=== PATIENT | female | born 1995 | race Caucasian/White ===

== ENCOUNTER 2021-06-17 09:57 | Emergency (ER) | payer OTHER ==
[2021-06-17 11:17] LABS: Urine Blood Trace-intact (Negative); Urine Glucose Negative (Negative); Urine Protein Negative (Negative); Urine Specific Gravity >=1.030 (1.005-1.030); Urine pH 5.5 (5.0-7.0)
[2021-06-17 11:49] LABS: Urine Bacteria >50 /HPF (<20)
[2021-06-17] MEDS ORDERED: ONDANSETRON 4 MG/2 ML VIAL ONE (12:05)
[2021-06-17 12:11] LABS: Absolute Lymphocytes (CBC) 1.8 K/uL (0.7-4.9); Hematocrit 39.2 % (36.0-45.0); MPV 7.5 fL (7.6-11.3); RBC Red Blood Cell Count 4.52 M/uL (3.86-4.86)
[2021-06-17 12:30] LABS: Albumin 3.6 g/dL (3.4-5.0); Bilirubin Total 0.4 mg/dL (0.2-1.0); Potassium 3.9 mmol/L (3.5-5.1); Protein, Total 7.6 g/dL (6.4-8.2)
--- NOTE | 2021-06-17 12:45 | RAD REPORT ---
EXAM DESCRIPTION: US - Transvaginal Study Probe - 06/17/2021 12:28 pm CLINICAL HISTORY: ABD PAIN Pelvic pain. COMPARISON: No comparisons FINDINGS: The uterus is normal in size, shape and echotexture. The uterus measures 7.2 x 4.3 x 3.1 c m. The endometrial stripe measures 7 mm, normal. Both ovaries are normal in size, shape and echotexture. The right ovary measures 3.0 x 2.5 x 2.3 cm. The left ovary measures 2.7 x 1.8 x 1.8 cm. No ovarian or parovarian lesions. No adnexal masses. Normal Doppler blood flow was demonstrated to both ovaries. No significant pelvic ascites. IMPRESSION: Unremarkable study.
--- NOTE | 2021-06-17 13:34 | RAD REPORT ---
EXAM DESCRIPTION: CTAbdomen Pelvis W Contrast - 06/17/2021 1:08 pm CLINICAL HISTORY: Abdominal pain. ABD PAIN COMPARISON: No comparisons TECHNIQUE: Biphasic CT imaging of the abdomen and pelvis was performed with 100 ml non-ionic IV cont rast. All CT scans are performed using dose optimization technique as appropriate and may include automated exposure control or mA/KV adjustment according to patient size. FINDINGS: The lung bases are clear. The liver, spleen, pancreas, adrenal glands and kidneys are within normal limits. No bowel obstruction, free air, free fluid or abscess. Appendectomy. No evidence of significant lym phadenopathy. No suspicious bony findings. IMPRESSION: No acute intra-abdominal or pelvic finding.
--- NOTE | 2021-06-17 13:42 | ER ---
Nurse's Notes [facility] Name: Sherri Perez Age: 25 yrs Sex: Female : 1995 Arrival Date: 06/17/2021 Time: 10:01 Bed 25 Private MD: Diagnosis: Abdominal pain, Generalized Presentation: 06/17 10:19 Chief complaint: Patient states: she has been having abdominal pain for approx 2 weeks ap3 now that has increased in intensity. Patient reports the pain is increased when she bends over, and is bearable if she lays down and is still. Patient also reports having lost most of her appetite and feels full after just a few bites. Patient reports being evaluated by her PCP and her [employer], which she was dx with yeast infection and chlamydia. Patient states she still has her Gallbladder, does not have her appendix. Coronavirus screen: At this time, the client does not indicate any symptoms associated with coronavirus-19. Ebola Screen: No symptoms or risks identified at this time. Initial Sepsis Screen: Does the patient meet any 2 criteria? No. Patient's initial sepsis screen is negative. Does the patient have a suspected source of infection? No. Patient's initial sepsis screen is negative. Risk Assessment: Do you want to hurt yourself or someone else? Patient reports no desire to harm self or others. Onset of symptoms was June 03, 2021. 10:19 Method Of Arrival: Ambulatory ap3 10:19 Acuity: CHRIS 3 ap3 Triage Assessment: 10:24 General: Appears in no apparent distress. Behavior is calm, cooperative, appropriate ap3 for age. Pain: Complains of pain in abdomen Pain currently is 9 out of 10 on a pain scale. at worst was 10 out of 10 on a pain scale. Pain began gradually, over a few weeks Alleviated by rest, Aggravated by bending over. Neuro: Level of Consciousness is awake, alert, obeys commands, Oriented to person, place, time, situation, Appropriate for age. Cardiovascular: Patient's skin is warm and dry. Respiratory: Airway is patent Respiratory effort is even, unlabored, Respiratory pattern is regular, symmetrical. GI: Reports lower abdominal pain, upper abdominal pain, anorexia, intolerance of food, nausea. FUELER: 10:25 LMP 06/03/2021 ap3 Historical: - Allergies: 10:22 Morphine; ap3 - PMHx: 10:22 ovarian cyst; Anxiety; ap3 - Immunization history:: Client reports receiving the 2nd dose of the Covid vaccine. - Social history:: Smoking status: Patient denies any tobacco usage or history of. Patient uses alcohol, occasionally. Screenin:25 Abuse screen: Denies threats or abuse. Nutritional screening: Has had N/V for 3 or more ap3 days. Tuberculosis screening: No symptoms or risk factors identified. Fall Risk None identified. Assessment: 11:55 General: Appears in no apparent distress. comfortable, Behavior is calm, cooperative, jd3 appropriate for age. Pain: Complains of pain in right lower quadrant and left lower quadrant Quality of pain is described as shooting, tender. Neuro: Level of Consciousness is awake, alert, obeys commands, Oriented to person, place, time, situation. Cardiovascular: Capillary refill < 3 seconds Patient's skin is warm and dry. Respiratory: Airway is patent Respiratory effort is even, unlabored, Respiratory pattern is regular, symmetrical, Denies cough, shortness of breath. GI: Abdomen is round non-distended, Abd is soft and non tender X 4 quads. Reports lower abdominal pain, cramping, nausea, vomiting. : No signs and/or symptoms were reported regarding the genitourinary system. EENT: No signs and/or symptoms were reported regarding the EENT system. Derm: Skin is intact, Skin is dry, Skin is normal, Skin temperature is warm. Musculoskeletal: Circulation, motion, and sensation intact. Range of motion: intact in all extremities. 13:17 Reassessment: Patient appears in no apparent distress at this time. Patient and/or jd3 family updated on plan of care and expected duration. Pain level reassessed. Patient is alert, oriented x 3, equal unlabored respirations, skin warm/dry/pink. reports nausea is feeling better. 14:04 Reassessment: Patient appears in no apparent distress at this time. Patient and/or jd3 family updated on plan of care and expected duration. Pain level reassessed. Patient is alert, oriented x 3, equal unlabored respirations, skin warm/dry/pink. Vital Signs: 10:19 Pulse 76; Resp 16; Temp 98.2; Pulse Ox 99% ; Weight 99.79 kg; Height 5 ft. 6 in. ap3 (167.64 cm); Pain 9/10; 13:17 BP 130 / 53; Pulse 87; Resp 16 S; Pulse Ox 99% on R/A; jd3 10:19 Body Mass Index 35.51 (99.79 kg, 167.64 cm) ap3 ED Course: 10:01 Patient arrived in ED. ds1 10:22 Triage completed. ap3 10:25 Arm band placed on right wrist. ap3 11:12 Anival Drew RN is Primary Nurse. jd3 11:15 Paresh Henry PA is PHCP. jr8 11:15 Samuel Vanegas MD is Attending Physician. jr8 11:31 Urine Microscopic Only Sent. jd3 11:55 Inserted saline lock: 22 gauge in left upper arm, using aseptic technique. Blood jd3 collected. 12:08 Patient has correct armband on for positive identification. Bed in low position. Call jd3 light in reach. Side rails up X 1. Adult w/ patient. Pulse ox on. NIBP on. 12:28 US Transvaginal Study (Probe) In Process Unspecified. EDMS 13:09 CT Abd/Pelvis - IV Contrast Only In Process Unspecified. EDMS 14:04 No provider procedures requiring assistance completed. IV discontinued, intact, jd3 bleeding controlled, No redness/swelling at site. Pressure dressing applied. Administered Medications: 12:06 Drug: Zofran (Ondansetron) 4 mg Route: IVP; Site: left upper arm; jd3 13:00 Follow up: Response: No adverse reaction jd3 13:54 Drug: Ketorolac 30 mg Route: IVP; Site: left upper arm; jd3 14:04 Follow up: Response: No adverse reaction jd3 Outcome: 13:41 Discharge ordered by . jr8 14:04 Discharged to home ambulatory. jd3 14:04 Condition: stable 14:04 Discharge instructions given to patient, Instructed on discharge instructions, follow up and referral plans. Demonstrated understanding of instructions, follow-up care. 14:04 Patient left the ED. jd3 Signatures: Dispatcher [employer] EDLA Jeanne Jacques ds1 Paresh Henry PA PA jr8 Anival Drew RN RN jd3 Emma Alberto RN RN ap3
--- NOTE | 2021-06-17 13:42 | EDPHYS ---
Physician Documentation [facility] Name: Sherri Perez Age: 25 yrs Sex: Female : 1995 Arrival Date: 06/17/2021 Time: 10:01 Bed 25 Private MD: ED Physician Samuel Vanegas HPI: 06/17 12:17 This 25 yrs old Female presents to ER via Ambulatory with complaints of Abdominal Pain. jr8 12:17 Associated signs and symptoms: Pertinent positives: nausea and vomiting. jr8 12:17 Onset: The symptoms/episode began/occurred 2 week(s) ago. 25-year-old female presents jr8 to the ER complaining of lower abdominal pain, and nausea for 2 weeks. She was seen by both her primary care and supervisor plate forming a few days ago. She was diagnosed with both chlamydia and a yeast infection. She is taking azithromycin and clotrimazole. She states that her pain became sharp last night, and was directed by her supervisor plate forming to go to the ER. She has a history of ovarian cyst and reports that it feels very similar to the last time she had a cyst.. SIGNAL PERSON: 10:25 LMP 06/03/2021 ap3 Historical: - Allergies: 10:22 Morphine; ap3 - PMHx: 10:22 ovarian cyst; Anxiety; ap3 - Immunization history:: Client reports receiving the 2nd dose of the Covid vaccine. - Social history:: Smoking status: Patient denies any tobacco usage or history of. Patient uses alcohol, occasionally. ROS: 12:17 Constitutional: Negative for fever, chills, and weight loss, Cardiovascular: Negative jr8 for chest pain, palpitations, and edema, Respiratory: Negative for shortness of breath, cough, wheezing, and pleuritic chest pain, Skin: Negative for injury, rash, and discoloration, Neuro: Negative for headache, weakness, numbness, tingling, and seizure. 12:17 Abdomen/GI: Positive for abdominal pain, nausea. 12:17 All other systems are negative. Exam: 12:17 Constitutional: This is a well developed, well nourished patient who is awake, alert, jr8 and in no acute distress. Cardiovascular: Regular rate and rhythm with a normal S1 and S2. No gallops, murmurs, or rubs. Normal PMI, no JVD. No pulse deficits. Respiratory: Lungs have equal breath sounds bilaterally, clear to auscultation and percussion. No rales, rhonchi or wheezes noted. No increased work of breathing, no retractions or nasal flaring. 12:17 Abdomen/GI: Inspection: abdomen appears normal, Bowel sounds: normal, Palpation: soft, moderate abdominal tenderness, in the suprapubic area, right lower quadrant and left lower quadrant. Vital Signs: 10:19 Pulse 76; Resp 16; Temp 98.2; Pulse Ox 99% ; Weight 99.79 kg; Height 5 ft. 6 in. ap3 (167.64 cm); Pain 9/10; 13:17 BP 130 / 53; Pulse 87; Resp 16 S; Pulse Ox 99% on R/A; jd3 10:19 Body Mass Index 35.51 (99.79 kg, 167.64 cm) ap3 MDM: 11:15 Patient medically screened. jr8 13:39 Data reviewed: vital signs, nurses notes, lab test result(s), radiologic studies, CT jr8 scan, ultrasound. Data interpreted: Pulse oximetry: on room air is 99 %. Interpretation: normal. Counseling: I had a detailed discussion with the patient and/or guardian regarding: the historical points, exam findings, and any diagnostic results supporting the discharge/admit diagnosis, lab results, radiology results, the need for outpatient follow up, a family practitioner, to return to the emergency department if symptoms worsen or persist or if there are any questions or concerns that arise at home. Special discussion: Based on the patient's Hx, exam, and Dx evaluation, there is no indication for emergent surgery or inpatient Tx. It is understood by the patient/guardian that if the Sx's persist or worsen they need to return immediately for re-evaluation. 06/17 11:17 Order name: Urine Dipstick-Ancillary; Complete Time: 11:24 EDMS 06/17 11:26 Order name: Urine Microscopic Only; Complete Time: 12:04 jr8 06/17 11:40 Order name: CBC with Diff; Complete Time: 12:16 sp3 06/17 11:40 Order name: CMP; Complete Time: 12:32 sp3 06/17 11:40 Order name: US Transvaginal Study (Probe); Complete Time: 12:46 jr8 06/17 12:34 Order name: CT Abd/Pelvis - IV Contrast Only; Complete Time: 13:39 jr8 06/17 11:26 Order name: Urine Test (obtain specimen); Complete Time: 11:31 jr8 06/17 11:40 Order name: IV Saline Lock; Complete Time: 11:58 sp3 06/17 11:40 Order name: Labs collected and sent; Complete Time: 11:58 sp3 Administered Medications: 12:06 Drug: Zofran (Ondansetron) 4 mg Route: IVP; Site: left upper arm; jd3 13:00 Follow up: Response: No adverse reaction jd3 13:54 Drug: Ketorolac 30 mg Route: IVP; Site: left upper arm; jd3 14:04 Follow up: Response: No adverse reaction jd3 Disposition Summary: 06/17/21 13:41 Discharge Ordered Location: Home jr8 Problem: new jr8 Symptoms: have improved jr8 Condition: Stable jr8 Diagnosis - Abdominal pain, Generalized jr8 Followup: jr8 - With: Private Physician - When: 2 - 3 days - Reason: Recheck today's complaints, Continuance of care, Re-evaluation by your physician Discharge Instructions: - Discharge Summary Sheet jr8 - Abdominal Pain, Adult jr8 Forms: - Medication Reconciliation Form jr8 - Thank You Letter jr8 - Antibiotic Education jr8 - Prescription Opioid Use jr8 - Work release form jd3 Signatures: Dispatcher [employer] EDParesh Byrd PA PA jr8 Anival Drew RN RN jd3 Emma Alberto RN RN ap3 Samuel Vanegas MD MD sp3
[2021-06-17] MEDS ORDERED: KETOROLAC 30 MG/ML INJ ONE (13:53)
[2021-06-17 18:50] VITALS: TEMP 98.2; O2SAT 99
[2021-06-17 18:52] VITALS: BP 130/53
== END 2021-06-17 14:04 | disposition home or self-care (01) ==
LOC: ER 09:57
DX: R10.84 Generalized abdominal pain (principal); R11.0 Nausea; Z88.5 Allergy status to narcotic agent
CPT/HCPCS: 85025; 36415; 80053; 74177; 76830; Q9967; J2405; 81003; 81015; 96374; 96375; 99284

== ENCOUNTER 2023-02-09 16:36 | Emergency (ER) | payer SELFPAY ==
--- OUTSIDE RECORDS SUMMARY | 2023-02-09 16:39 | XMS REPORT | Continuity of Care Document ---
:1995 Author Organization [facility] t Address [address] [place] [address] [address] [place] [address] Care Team Providers Name Role Phone Deepak Lizarraga Primary Care Physician Laurie Rivas MD Attending Clinician Nina Maddox Attending Clinician NINA HAGAN Attending Clinician Unavailable Adela Olmstead Attending Clinician [phone] ADELA SAM Attending Clinician Unavailable Doctor Unassigned, Mena Attending Clinician Unavailable Yenni Capps Attending Clinician YENNI RIVAS Attending Clinician Unavailable ANNA STOCK Attending Clinician Unavailable HANY POWERS Attending Clinician Unavailable UNKNOWN, ATTENDING Attending Clinician Unavailable SHEEBA SMITH Attending Clinician Unavailable Payers Payer Name Policy Type Policy Number Effective Date Expiration Date Miller franks [id number] 2020 00:00:00 Problems Condition Condition Condition Status Onset Resolution Last Treating Co mments Source Name Details Category Date Date Treatment Clinician Date Other Other Disease Active Univers general general 8-26 [place] of counseling [place] and advice and advice 00 Nv dical for for Branch contracept contracept erna erna management management History of History of Disease Active U nivers anxiety anxiety 5-10 ity of 00:00: [place] 00 Medical Branch IUD IUD Disease Active Univers (intrauter (intrauter 5-07 it y of ine ine 00:00: [place] device) in device) in [address] Branch Class 2 Class 2 Disease Active Univers obesity obesity 5-07 ity of due to due to 00:00: [place] excess excess 00 Medical calories calories Branch with body with body mass index mass index (BMI) of (BMI) of 36.0 to 36.0 to 36.9 in 36.9 in adult, adult, unspecifie unspecifie d whether d whether serious serious comorbidit comorbidit y present y present BMI BMI Disease Active Univers 36.0-36.9, 36.0-36.9, 5-07 it y of adult adult 00:00: [place] 00 Medical Branch Class 2 Class 2 Disease Active Univers obesity obesity 5-07 ity of due to due to 00:00: [place] excess excess 00 Medical calories calories Branch with body with body mass index mass index (BMI) of (BMI) of 36.0 to 36.0 to 36.9 in 36.9 in adult, adult, unspecifie unspecifie d whether d whether serious serious comorbidit comorbidit y present y present Pain Pain Disease Active 2016-03 Univers pelvic pelvic 0-16 ity of 00:00: [place] 00 Medical Branch Screening Screening Disease Active 2016-03 Uni vers examinatio examinatio 0-13 it y of n for STD n for STD [place] (sexually (sexually 00 Medi mundo transmitte transmitte Br anch d disease) d disease) Allergies, Adverse Reactions, Alerts Allergy Allergy Status Severity Reaction(s) Onset Inactive Treating Comm ents Source Name Type Date Date Clinician NAPROXEN DRUG Active High Other-Cmnt Univ ers SODIUM INGREDI 06-10 ity of 00:00: [place] 00 Medical Branch MORPHINE DRUG Active Low Unknown-Cmnt Un franklin INGREDI 06-10 ity of 00:00: [place] 00 Medical Branch Naproxen Propensi Active Other - See Throat U nivers Sodium ty to comments 06-10 closes ity of adverse 00:00: when [place] reaction 00 takes Medical s to Aleve. Branch drug Morphine Propensi Active Unknown - When Uni vers ty to See comments 3- morphine it y of adverse 00:00: given [place] reaction 00 through Medical s to IV makes Branch drug patient fell like she is on fire. NO KNOWN Drug Active Univers ALLERGIE Class ity of S [facility] Social History Social Habit Start Date Stop Date Quantity Comments Source Gender identity Universit y [facility] Sexual orientation Univer sity [facility] Exposure to 2022-05-31 2022-06-10 Not sure [facility] SARS-CoV-2 (event) 00:00:00 15:12:00 [facility] History of Social 2022-06-10 2022-06-10 Univers ity of function 00:00:00 00:00:00 [facility] Alcohol intake 2017-10-14 2017-10-14 Current University of 00:00:00 00:00:00 non-drinker of [facility] alcohol [place] (finding) Tobacco use and 2016-12-25 2016-12-25 Smokeless Universit y of exposure 00:00:00 00:00:00 tobacco non-user [facility] Sex Assigned At [birth year] Universit y of 00:00:00 00:00:00 [facility] Smoking Status Start Date Stop Date Source Never smoked tobacco [facility] Medications Ordered Filled Start Stop Current Ordering Indication Dosage Frequency Signature Comments Components Source Medication Medication Date Date Medication? Clinician (SIG) Name Name norgestimat Yes [id number] 1{tbl} Take 1 Univers e-ethinyl 4-14 tablet by ity o f estradioL 00:00[place] 0.[place].215[place] 00 the Medical 0.25 mg-25 morning. Branc h mcg tablet norgestimat Yes [id number] 1{tbl} Take 1 Univers e-ethinyl 4-14 tablet by ity o f estradioL 00:00: [place] 0.18[place]0.215/ 00 the Medical 0.25 mg-25 morning. Branc h mcg tablet norgestimat Yes [id number] 1{tbl} Take 1 Univers e-ethinyl 4-14 tablet by ity o f estradioL 00:00[place] 0.[place]0.[place]/ 00 the Medical 0.25 mg-25 morning. Branc h mcg tablet SERTraline 2023-0 Yes 100mg Take 1 Univ ers 100 mg 3-29 tablet by ity of tablet 15:25: mouth in [place] [address] the Medical morning. Branch buPROPion 2023-0 Yes 150mg Take 1 Unive rs SR 3-29 tablet by ity of (WELLBUTRIN 15:25: [place] SR[place] 150 mg 49 the Medical SR tablet morning Branch and 1 tablet in the evening. hydrOXYzine 2023-0 Yes 50mg Take 1 Univ ers 50 mg 3-29 tablet by ity of tablet 15:25: mouth in [place] [address] the Medical morning. Branch Takes at night to help sleep. Gets from Dr. Cyn Sifuentes. SERTraline 2023-0 Yes 100mg Take 1 Univ ers 100 mg 3-29 tablet by ity of tablet 15:25: mouth in [place] [address] the Medical morning. Branch buPROPion 2023-0 Yes 150mg Take 1 Unive rs SR 3-29 tablet by ity of (WELLBUTRIN 15:25: [place] SR[place] 150 mg 49 the Medical SR tablet morning Branch and 1 tablet in the evening. hydrOXYzine 2023-0 Yes 50mg Take 1 Univ ers 50 mg 3-29 tablet by ity of tablet 15:25: mouth in [place] [address] the Medical morning. Branch Takes at night to help sleep. Gets from Dr. Cyn Sifuentes. SERTraline 2023-0 Yes 100mg Take 1 Univ ers 100 mg 3-29 tablet by ity of tablet 15:25: mouth in [place] [address] the Medical morning. Branch buPROPion 2023-0 Yes 150mg Take 1 Unive rs SR 3-29 tablet by ity of (WELLBUTRIN 15:25: [place] SR[place] 150 mg 49 the Medical SR tablet morning Branch and 1 tablet in the evening. hydrOXYzine 2023-0 Yes 50mg Take 1 Univ ers 50 mg 3-29 tablet by ity of tablet 15:25: mouth in [place] [address] the Medical morning. Branch Takes at night to help sleep. Gets from Dr. Cyn Sifuentes. SERTraline 2023-0 Yes 100mg Take 1 Univ ers 100 mg 3-29 tablet by ity of tablet 15:25: mouth in [place] [address] the Medical morning. Branch buPROPion 2023-0 Yes 150mg Take 1 Unive rs SR 3-29 tablet by ity of (WELLBUTRIN 15:25: [place] SR[place] 150 mg 49 the Medical SR tablet morning Branch and 1 tablet in the evening. hydrOXYzine 2023-0 Yes 50mg Take 1 Univ ers 50 mg 3-29 tablet by ity of tablet 15:25: mouth in [place] [address] the Medical morning. Branch Takes at night to help sleep. Gets from Dr. Cyn Sifuentes. SERTraline 2023-0 Yes 100mg Take 1 Univ ers 100 mg 3-29 tablet by ity of tablet 15:25: mouth in [place] [address] the Medical morning. Branch buPROPion 2023-0 Yes 150mg Take 1 Unive rs SR 3-29 tablet by ity of (WELLBUTRIN 15:25: [place] SR[place] 150 mg 49 the Medical SR tablet morning Branch and 1 tablet in the evening. hydrOXYzine 2023-0 Yes 50mg Take 1 Univ ers 50 mg 3-29 tablet by ity of tablet 15:25: mouth in [place] [address] the Medical morning. Branch Takes at night to help sleep. Gets from Dr. Cyn Sifuentes. SERTraline 2023-0 Yes 100mg Take 1 Univ ers 100 mg 3-29 tablet by ity of tablet 15:25: mouth in [place] [address] the Medical morning. Branch buPROPion 2023-0 Yes 150mg Take 1 Unive rs SR 3-29 tablet by ity of (WELLBUTRIN 15:25: [place] SR[place] 150 mg 49 the Medical SR tablet morning Branch and 1 tablet in the evening. hydrOXYzine 2023-0 Yes 50mg Take 1 Univ ers 50 mg 3-29 tablet by ity of tablet 15:25: mouth in [place] [address] the Medical morning. Branch Takes at night to help sleep. Gets from Dr. Cyn Sifuentes. norgestimat 2023-0 Yes [id number] 1{tbl} Take 1 Univers e-ethinyl 3-29 tablet by ity o f estradioL 00:00: mouth in [facility] 0.18/0.215/ 00 the Medical 0.25 mg-25 morning. Branc h mcg tablet norgestimat 2023-0 Yes [id number] 1{tbl} Take 1 Univers e-ethinyl 3-29 tablet by ity o f estradioL [place]: [place] 0[place]18[place]0.215/ 00 the Medical 0.25 mg-25 morning. Branc h mcg tablet norgestimat Yes [id number] 1{tbl} Take 1 Univers e-ethinyl 3-29 tablet by ity o f estradioL 00:00: [place] 0.18/0.215/ 00 the Medical 0.25 mg-25 morning. Branc h mcg tablet norgestimat 2022- No [id number] 1{tbl} Take 1 Univers e-ethinyl 3-29 04-14 tablet by ity of estradioL 00:00: 00:00 mouth in [place] 0.18/0.215/ 00 :00 the Medical 0.25 mg-25 morning. Branc h mcg tablet No known No No known Unive rs medications 11-07 medication it y of 14:35: s [address] terconazole 2021- No [id number] 1{appli Insert 1 Univers 0.8 % 4-11-07 cator} Applicator ity o f vaginal 00:00: 00:00 into [place] cream 00 :00 vagina at Medical bedtime. [place] terconazole 2021- No [id number] 1{appli Insert 1 Univers 0.8 % -11-07 cator} Applicator ity o f vaginal 00:00: 00:00 into [place] cream 00 :00 vagina at Medical bedtime. [place] terconazole 2021- No [id number] 1{appli Insert 1 Univers 0.8 % 08-07 cator} Applicator ity o f vaginal 00:00: 00:00 into [place] cream 00 :00 vagina at Medical bedtime. [place] terconazole 2021- No [id number] 1{appli Insert 1 Univers 0.8 % 08-07- cator} Applicator ity o f vaginal 00:00: 00:00 into [place] cream 00 :00 vagina at Medical bedtime. [place] norgestimat 2021- No [id number] 1{tbl} Take 1 Univers e-ethinyl 5-11 -26 tablet by ity of estradioL 00:00: 00:00 mouth [place] 0.18/0.215/ 00 :00 daily. Medica l 0.25 mg-25 Branch mcg tablet norgestimat 2021- No [id number] 1{tbl} Take 1 Univers e-ethinyl 5-11 08-26 tablet by ity of estradioL 00:00: 00:00 mouth [place] 0.18/0.215/ 00 :00 daily. Medica l 0.25 mg-25 Branch mcg tablet norgestimat 2016-03- No [id number] 1{tbl} Take 1 Univers e-ethinyl 0-16 -12 tablet by ity of estradiol 00:00: 00:00 mouth [place] 0.18/0.215/ 00 :00 daily. Medica l 0.25 mg-35 Branch mcg (28) tablet Immunizations Ordered Filled Date Status Comments Source Immunization Name Immunization Name SARS-COV-2 COVID-19 2020-04-08 Completed Unive rsity of PFIZER VACCINE 00:00:00 [facility] SARS-COV-2 COVID-19 2020-04-08 Completed Unive rsity of PFIZER VACCINE 00:00:00 [facility] SARS-COV-2 COVID-19 2020-04-08 Completed Unive rsity of PFIZER VACCINE 00:00:00 [facility] SARS-COV-2 COVID-19 2020-04-08 Completed Unive rsity of PFIZER VACCINE 00:00:00 [facility] SARS-COV-2 COVID-19 2020-04-08 Completed Unive rsity of PFIZER VACCINE 00:00:00 [facility] SARS-COV-2 COVID-19 2020-04-08 Completed Unive rsity of PFIZER VACCINE 00:00:00 [facility] SARS-COV-2 COVID-19 2020-04-08 Completed Unive rsity of PFIZER VACCINE 00:00:00 [facility] SARS-COV-2 COVID-19 2020-04-08 Completed Unive rsity of PFIZER VACCINE 00:00:00 [facility] Pfizer COVID-19 Pfizer COVID-19 2020-04-08 Completed Vaccine Vaccine 00:00:00 SARS-COV-2 COVID-19 2020-03-16 Completed Unive rsity of PFIZER VACCINE 00:00:00 [facility] SARS-COV-2 COVID-19 2020-03-16 Completed Unive rsity of PFIZER VACCINE 00:00:00 [facility] SARS-COV-2 COVID-19 2020-03-16 Completed Unive rsity of PFIZER VACCINE 00:00:00 [facility] SARS-COV-2 COVID-19 2020-03-16 Completed Unive rsity of PFIZER VACCINE 00:00:00 [facility] SARS-COV-2 COVID-19 2020-03-16 Completed Unive rsity of PFIZER VACCINE 00:00:00 [facility] SARS-COV-2 COVID-19 2020-03-16 Completed Unive rsity of PFIZER VACCINE 00:00:00 [facility] SARS-COV-2 COVID-19 2020-03-16 Completed Unive rsity of PFIZER VACCINE 00:00:00 [facility] SARS-COV-2 COVID-19 2020-03-16 Completed Unive rsity of PFIZER VACCINE 00:00:00 [facility] Pfizer COVID-19 Pfizer COVID-19 2020-03-16 Completed Vaccine Vaccine 00:00:00 HPV9 2016-12-25 Completed University of 00:00:00 [facility] HPV9 2016-12-25 Completed University of 00:00:00 [facility] HPV9 2016-12-25 Completed University of 00:00:00 [facility] HPV9 2016-12-25 Completed University of 00:00:00 [facility] HPV9 2016-12-25 Completed University of 00:00:00 [facility] HPV9 2016-12-25 Completed University of 00:00:00 [facility] HPV9 2016-12-25 Completed University of 00:00:00 [facility] HPV9 2016-12-25 Completed University of 00:00:00 [facility] HPV 2013-03-15 Completed University of 00:00:00 [facility] HPV 2013-03-15 Completed University of 00:00:00 [facility] HPV 2013-03-15 Completed University of 00:00:00 [facility] HPV 2013-03-15 Completed University of 00:00:00 [facility] HPV 2013-03-15 Completed University of 00:00:[address] [facility] Branch HPV 2013-03-15 Completed University of 00:00:00 [facility] HPV 2013-03-15 Completed University of 00:00:00 [facility] HPV 2013-03-15 Completed University of 00:00:00 [facility] TDAP 2011-03-15 Completed University of 00:00:00 [facility] TDAP 2011-03-15 Completed University of 00:00:00 [facility] TDAP 2011-03-15 Completed University of 00:00:00 [facility] TDAP 2011-03-15 Completed University of 00:00:00 [facility] TDAP 2011-03-15 Completed University of 00:00: [facility] TDAP 2011-03-15 Completed University of 00:00: [facility] TDAP 2011-03-15 Completed University of 00:00:00 [facility] TDAP 2011-03-15 Completed University of 00:00:00 [facility] TDAP Unknown Completed [facility] HPV Unknown Completed [facility] HPV9 Unknown Completed [facility] SARS-COV-2 COVID-19 Unknown Completed Unive rsity of PFIZER VACCINE [facility] SARS-COV-2 COVID-19 Unknown Completed Unive rsity of PFIZER VACCINE [facility] TDAP Unknown Completed [facility] HPV Unknown Completed [facility] HPV9 Unknown Completed [facility] SARS-COV-2 COVID-19 Unknown Completed Unive rsity of PFIZER VACCINE [facility] SARS-COV-2 COVID-19 Unknown Completed Unive rsity of PFIZER VACCINE [facility] TDAP Unknown Completed [facility] HPV Unknown Completed [facility] HPV9 Unknown Completed [facility] SARS-COV-2 COVID-19 Unknown Completed Unive rsity of PFIZER VACCINE [facility] SARS-COV-2 COVID-19 Unknown Completed Unive rsity of PFIZER VACCINE [facility] TDAP Unknown Completed [facility] HPV Unknown Completed [facility] HPV9 Unknown Completed [facility] SARS-COV-2 COVID-19 Unknown Completed Unive rsity of PFIZER VACCINE [facility] SARS-COV-2 COVID-19 Unknown Completed Unive rsity of PFIZER VACCINE [facility] TDAP Unknown Completed [facility] HPV Unknown Completed [facility] HPV9 Unknown Completed [facility] Vital Signs Vital Name Observation Time Observation Value Comments Source Systolic blood 2022-06-10 20:16:00 123 mm[Hg] Univer sity of pressure [place] [facility] Diastolic blood 2022-06-10 20:16:00 76 mm[Hg] Unive rsity of pressure [place] [facility] Heart rate 2022-06-10 20:16:00 88 /min Universi ty of [place] [facility] [place] Body temperature 2022-06-10 20:16:00 36.44 Izabel Univ ersity of [place] [facility] Respiratory rate 2022-06-10 20:16:00 17 /min Univ ersity of [place] [facility] Body height 2022-06-10 20:16:00 170.2 cm Universi ty of [place] [facility] Body weight 2022-06-10 20:16:00 112.095 kg Universi ty of [place] [facility] BMI 2022-06-10 20:16:00 38.71 kg/m2 Universi ty of [facility] Systolic blood 2021-11-07 19:30:00 128 mm[Hg] Univer sity of pressure [place] [facility] Diastolic blood 2021-11-07 19:30:00 82 mm[Hg] Unive rsity of pressure [place] [facility] Heart rate 2021-11-07 19:29:00 73 /min Universi ty of [place] [facility] Body temperature 2021-11-07 19:29:00 36.89 Izabel Univ ersity of [facility] Branch Respiratory rate 2021-11-07 19:29:00 18 /min Univ ersity of [place] [facility] Body height 2021-11-07 19:29:00 170.2 cm Universi ty of [place] [facility] Body weight 2021-11-07 19:29:00 104.101 kg Universi ty of [place] [facility] BMI 2021-11-07 19:29:00 35.94 kg/m2 Universi ty of [place] [facility] Procedures Procedure Date / Time Performed Performing Clinician Sourc e POCT TEST 2022-06-10 21:12:00 Nina Hagan [facility] POCT URINALYSIS W/O 2022-06-10 20:38:00 Nina Hagan [facility] Encounters Start End Encounter Admission Attending Care Care Encounter Source Date/Time Date/Time Type Type Clinicians Facility Department ID 2022-09-24 2022-09-24 Outpatient R [facility] [id number] Univers 08:30:00 08:30:00 ity of [facility] 2022-09-19 2022-09-19 Refaster Rivas IABARBI [id number] Univers 00:00:00 00:00:00 Laurie Dawson ELECTRICIAN'S HELPER [id number] ity of REGIONAL [id number] [place] MATERNAL [id number] [facility] CHILD [address] [place] [address] 2022-06-25 2022-06-25 Telephone Danya [facility] [id number] Univers 00:00:00 00:00:00 Nina Jasmine ELECTRICIAN'S HELPER [id number] it y of REGIONAL [id number] Primitivo as MATERNAL [id number] [facility] & [address] 2022-06-25 2022-06-25 Telephone Danya [facility] [id number] Univers 00:00:00 00:00:00 Nina Jasmine ELECTRICIAN'S HELPER [id number] it y of REGIONAL [id number] [place]it[place] as MATERNAL [id number] [facility] CHILD [address] [place] [address] 2022-06-18 2022-06-18 Telephone Danya I[facility] [id number] Univers 00:00:00 00:00:00 Nina Jasmine ELECTRICIAN'S HELPER [id number] it y of REGIONAL [id number] Primitivo as MATERNAL [id number] [facility] & [address] 2022-06-12 2022-06-12 Outpatient BIJU [id number] Prabhjot 14:06:03 14:06:03 [id number] F [place] 2022-06-10 2022-06-10 Outpatient R DANYA [facility] [id number] [facility] 14:45:00 16:35:07 NINA singh [facility] 2022-06-10 2022-06-10 Office Danya [facility] [id number] Univers 14:45:00 16:35:07 Visit Nina Jasmine ELECTRICIAN'S HELPER 350.1.13.10 it y of REGIONAL [id number] [place] as MATERNAL [id number] Med ical & CHILD 125 [facility] 2022-03-04 2022-03-04 Outpatient SFA [id number] Prabhjot 17:31:33 17:31:33 [id number] F [place] 2021-11-14 2021-11-14 Patient Geovannyflorina, [facility] [id number] Univers 00:00:00 00:00:00 Secure Msg Adela C ELECTRICIAN'S HELPER 350.1.13.10 ity of REGIONAL [id number] [place]it[place] as MATERNAL [id number] Med ical & CHILD 107 [facility] 2021-11-14 2021-11-14 Patient Geovannyflorina, [facility] [id number] Univers 00:00:00 00:00:00 Secure Msg Adela C ELECTRICIAN'S HELPER 350.1.13.10 ity of REGIONAL [id number] Primitivo as MATERNAL [id number] Med ical & CHILD [address] [place] [address] 2021-11-13 2021-11-13 [facility] [id number] Univers 00:00:00 00:00:00 Adela C ELECTRICIAN'S HELPER 350.1.13.10 ity of REGIONAL [id number] Primit[place] as MATERNAL [id number] [facility] [address] [place] [address] 2021-11-07 2021-11-07 [facility] [id number] Univers 14:15:00 15:29:58 Visit Adela C ELECTRICIAN'S HELPER 350.1.13.10 ity of REGIONAL [id number] Primitivo as MATERNAL [id number] [facility] [address] [place] [address] 2021-11-07 2021-11-07 Outpatient R CECY [facility] [id number] Univers 14:15:00 15:29:58 ADELA ity o f [facility] 2021-11-07 2021-11-07 Outpatient R CECY [facility] [id number] Univers 14:15:00 14:15:00 ADELA ity o f [facility] 2021-11-07 2021-11-07 Orders Doctor ANA [id number] Univers 00:00:00 00:00:00 Only Unassigned, YEISON 350.1.13.10 ity of [place] [facility] 4.2.7.2.686 Primitivo as [id number] [facility] 009 [place] 2021-07-01 2021-07-01 [facility] [id number] Univers 00:00:00 00:00:00 Roshunda R ELECTRICIAN'S HELPER 350.1.13.10 ity of [facility] 4.2.7.2.686 Primitivo as MATERNAL [id number] [facility] ical & CHILD [address] [place] [address] 2021-06-26 2021-06-26 Outpatient R [facility] [id number] Univers 09:45:00 09:45:00 ANAYROMENDA jean-pauly o [facility] 2021-06-26 2021-06-26 Outpatient R [facility] [id number] Univers 09:45:00 09:45:00 QUITANDA ity o [facility] 2021-06-17 2021-06-17 Patient Doctor ANA [id number] Univers 00:00:00 00:00:00 Secure Msg Unassigned, YEISON 350.1.13.10 ity of [place] [facility] 4.2.7.2.686 Primitivo as [id number] [facility] 019 [place] 2021-06-16 2021-06-16 Telephone [facility] [id number] Univers 00:00:00 00:00:00 Roshunda R ELECTRICIAN'S HELPER 350.1.13.10 ity of [facility] [id number] Primitivo as MATERNAL [phone] [facility] [address] 2021-06-16 2021-06-16 Telephone [facility] [id number] Univers 00:00:00 00:00:00 Roshunda R ELECTRICIAN'S HELPER 350.1.13.10 ity of REGIONAL 4.2.7.2.686 Primitivo as MATERNAL [phone] [facility] ical & CHILD [address] [place] [address] 2021-06-16 2021-06-16 Telephone Rob IABARBI [id number] Univers 00:00:00 00:00:00 Rosromenda R ELECTRICIAN'S HELPER 350.1.13.10 ity of REGIONAL 4.2.7.2.686 Primitivo as MATERNAL [phone] [facility] ical & CHILD [address] [place] [address] 2021-06-16 2021-06-16 [facility]phone [facility] [id number] Univers 00:00:00 00:00:00 Quitanda R ELECTRICIAN'S HELPER 350.1.13.10 ity of REGIONAL 4.2.7.2.686 Primitivo as MATERNAL [phone] [facility] & CHILD [address] [place] [address] 2021-06-16 2021-06-16 Patient Doctor [facility] [id number] [id number] Univers 00:00:00 00:00:00 Secure Msg Unassigned, ELECTRICIAN'S HELPER 350.1.13.10 ity of [place] REGIONAL 4.2.7.2.686 Primitivo as MATERNAL [phone] [facility] [address] [place] [address] 2021-06-13 2021-06-13 Patient Rob [facility] 1.2.840.114 [id number] Univers 00:00:00 00:00:00 Secure Msg Quitanda R ELECTRICIAN'S HELPER 350.1.13.10 ity of REGIONAL 4.2.7.2.686 Primitivo as MATERNAL [phone] [facility] [address] [place] [address] 2021-06-12 2021-06-12 Outpatient R ROB IABARBI [facility] [id number] Univers 08:15:00 09:25:44 YENNI ity o f [facility] 2021-06-12 2021-06-12 Office Rob [facility] 1.2.840.114 [id number] Univers 08:15:00 09:25:44 Visit Yenni R ELECTRICIAN'S HELPER 350.1.13.10 ity of [facility] 4.2.7.2.686 Primitivo as MATERNAL [phone] [facility] & CHILD [address] [place] [address] 2021-06-12 2021-06-12 Letter Rob [facility] 1.2.840.114 [id number] Univers 00:00:00 00:00:00 (Out) Jewela R ELECTRICIAN'S HELPER 350.1.13.10 ity of [facility] 4.2.7.2.686 Primitivo as MATERNAL [phone] [address] 2021-06-06 2021-06-06 Outpatient Scott STOCK [facility] [id number] Univers 08:30:00 08:30:00 ANNA ity [facility] 2020-10-16 2020-10-16 Outpatient Scott RIVAS [facility] [id number] Univers 09:15:00 09:15:00 YENNI singh o [facility] 2020-08-07 2020-08-07 Telephone [facility] [id number] Univers 00:00:00 00:00:00 Jewela R ELECTRICIAN'S HELPER 350.1.13.10 ity of [facility] 4.2.7.2.686 Primitivo as MATERNAL [id number] [address] 2020-07-23 2020-07-23 Office [facility] 1.2.840.114 [id number] Univers 14:39:39 15:21:56 Visit Jewela R ELECTRICIAN'S HELPER 350.1.13.10 ity of [facility] 4.2.7.2.686 Primitivo as MATERNAL [phone] [facility] & CHILD [address] [place] [address] 2020-07-23 2020-07-23 Outpatient Scott RIVAS [facility] [id number] Univers 14:30:00 14:30:00 QUITANDA ity o f [facility] 2020-07-19 2020-07-19 Office [facility] 1.2.840.114 [id number] Univers 10:54:01 11:36:34 Visit Anayhunda R ELECTRICIAN'S HELPER 350.1.13.10 ity of [facility] 4.2.7.2.686 Primitivo as MATERNAL [id number] Med ical & CHILD [address] [place] [address] 2020-07-19 2020-07-19 Outpatient Scott RIVAS [facility] [id number] Univers 10:45:00 10:45:00 YENNI ity o f [facility] 2020-07-19 2020-07-19 Orders Doctor ANA 1.2.840.114 [id number] Univers 00:00:00 00:00:00 Only Unassigned, YEISON 350.1.13.10 ity of [facility] 4.2.7.2.686 Primitivo as [phone] [facility] [address] [place] 2020-04-08 2020-04-08 [facility] [id number] Univers 13:50:00 13:50:00 HANY [facility] 2020-04-08 2020-04-08 [facility] [id number] Univers 07:40:00 07:40:00 HANY [facility] 2020-04-08 2020-04-08 Outpatient GCCOVIDV GCCOVIDV [id number] [facility]OVID 00:00:00 00:00:00 V 2020-03-27 2020-03-27 Patient Doctor ANA 1.2.840.114 [id number] Univers 00:00:00 00:00:00 Secure Msg Unassigned, YEISON 350.1.13.10 ity of [place] [facility] 4.2.7.2.686 Primitivo as [phone] [facility] [address] [place] 2020-03-26 2020-03-26 Outpatient R JUDY [facility] [id number] Univers 14:30:00 14:30:00 ATTENDING [facility] 2020-03-16 2020-03-16 [facility] [id number] Univers 11:20:00 11:20:00 HANY [facility] 2020-03-16 2020-03-16 Outpatient GCCOVIDV GCCOVIDV [id number] GCCOVID 00:00:00 00:00:00 V 2020-03-02 2020-03-02 Patient Doctor ANA 1.2.840.114 [id number] Univers 00:00:00 00:00:00 Secure Msg Unassigned, YEISON 350.1.13.10 ity of [place] [facility] 4.2.7.2.686 Primitivo as [phone] [address] 2020-03-01 2020-03-01 Outpatient R SARAH [facility] [id number] Univers 08:15:00 08:15:00 SHEEBA [facility] 2020-01-31 2020-01-31 Outpatient R [facility] [id number] Univers 12:00:00 12:00:00 [facility] Results Test Description Test Time Test Comments Results Result Comments Source POCT TEST 2022-06-10 21:13:00 Test Item Value Reference Range Interpretation Comme nts POCT PREG (test code = 1605) Negative On board controls acceptable with C Line (test code = 3574) Yes POCT PREG LOT # (test code = 3575) [id number] POCT PREG TEST DATE (test code = 3576) 07-13-2023 Lab Interpretation (test code = 59558-7) [id number] 21:13:00 Test Item Value Reference Range Interpretation Comments POCT PREG (test code = 1605) Negative On board controls acceptable with Yes C Line (test code = 3574) POCT PREG LOT # (test code = 3575) [id number] POCT PREG TEST DATE (test 07-13-2023 code = 3576) Lab Interpretation (test code = Normal 43756-9) [facility] SPECIFIC [id number] 20:39:00 Test Item Value Reference Range Interpretation Comments POCT PH U (test code = 3254) 5 mg/dl 5-8 POCT U LEUK EST (test code = Negative Negative - Negative 3263) POCT U NIT (test code = 3262) Negative Negative - Negative POCT U PROT (test code = 3259) Trace Negative - Negative POCT U GLU (test code = 3256) 250 Negative - Negative POCT U KETONE (test code = 3258) ++ Negative - Negative POCT U BLD (test code = 3257) Negative Negative - Negative Lab Interpretation (test code = Abnormal 10819-7) [facility]/O SPECIFIC [id number] 20:39:00 Test Item Value Reference Range Interpretation Comments POCT PH U (test code = 3254) 5 mg/dl 5-8 POCT U LEUK EST (test code = Negative Negative - Negative 3263) POCT U NIT (test code = 3262) Negative Negative - Negative POCT U PROT (test code = 3259) Trace Negative - Negative POCT U GLU (test code = 3256) 250 Negative - Negative POCT U KETONE (test code = 3258) ++ Negative - Negative POCT U BLD (test code = 3257) Negative Negative - Negative Lab Interpretation (test code = Abnormal 29116-9) [facility] Notes Date/Time Note Provider Source 2022-09-23 13:47:37 [id number]:47:37FormattShaheen zamora [facility]ly [facility] this note might be different from the original.Spoke with patient, scheduled BP check for tomorrow morning at 8:30 AM. Patient verbalized understanding and had no further questions. [id number] encounter PewzXW3154-49-04A93:48:28Telepho ne encounter [id number] .[id number] catracho for patient [id number] Rivera [address] Xm[id number] 09-23T13:48:281.2.840.814298.1.72 .3.15|1.2.840.155505.1.13.104.2. [id number] 2022-09-21 16:53:00 [id number]:53:00Formatting of [facility] this note might be different from the original.Patient needs BP check and OCP refills. Attempted to call #1. Left message with call back number. [id number] encounter HiwtXG7966-89-36Y54:54:07Telepho ne encounter [id number] .[id number] e for patient care[address] FwqmXs[id number]9357-2 :54:071.2.840.364816.1.72 .3.15|1.2.840.957159.1.13.104.2. [id number]"
[2023-02-09 20:02] LABS: Absolute Lymphocytes (CBC) 0.9 K/uL (0.7-4.9); Hematocrit 39.8 % (36.0-45.0); Lymphocytes % 8.8 % (15.3-44.8); MCV 87.2 fL (80-100); MPV 7.5 fL (7.6-11.3); Platelets 405 thou/uL (152-406); RBC Red Blood Cell Count 4.57 M/uL (3.86-4.86)
[2023-02-09] MEDS ORDERED: MECLIZINE HCL 12.5 MG TAB ONE (20:07)
[2023-02-09] MEDS ORDERED: HYDROCODONE/CHLORPHEN 5 ML/OSYR ONE (20:07)
[2023-02-09] MEDS ORDERED: NA CHLORIDE 0.9% 1,000 ML ONE (20:07)
[2023-02-09 20:21] LABS: Specific Gravity > 1.030 (1.005-1.030)
[2023-02-09 20:26] LABS: Specific Gravity > 1.030 (1.005-1.030); Urine Bacteria None Seen /HPF (<20); Urine Bilirubin NEGATIVE (Negative); Urine Blood Negative (Negative); Urine Clarity Clear (Clear); Urine Color Yellow (Yellow); Urine Glucose NEGATIVE (Negative); Urine Mucus 2+ /HPF (None Seen); Urine Protein TRACE (Negative); Urine RBC <5 /HPF (None Seen); Urine Urobilinogen Normal (Normal); Urine pH 5.5 (5.0-7.0)
--- NOTE | 2023-02-09 20:38 | RAD REPORT ---
EXAM DESCRIPTION: [facility] Single View02/09/2023 8:06 pm CLINICAL HISTORY: cough COMPARISON: none FINDINGS: The lungs appear clear of acute infiltrate. The heart is normal size IMPRESSION: No acute abnormalities displayed
--- NOTE | 2023-02-09 20:57 | EDPHYS ---
Physician Documentation [facility] Name: Sherri Perez Age: 27 yrs Sex: Female : 1995 Arrival Date: 02/09/2023 Time: 16:36 Bed 10 Private MD: ED Physician Roque Pemberton HPI: 02/09 17:45 This 27 yrs old Female presents to ER via Ambulatory with complaints of Cough, Sore cp Throat. 17:45 The patient or guardian reports cough, that is intermittent, with no sputum. Onset: The cp symptoms/episode began/occurred yesterday. Associated signs and symptoms: Pertinent positives: sore throat, Pertinent negatives: chest pain, diarrhea, vomiting, abdominal pain. 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 - Social history:: Smoking status: Patient denies any tobacco usage or history of. ROS: 17:50 Constitutional: Negative for fever, poor PO intake, cp 17:50 Eyes: Negative for injury, pain, redness, and discharge, cp 17:50 ENT: Positive for sore throat, Negative for drainage from ear(s), ear pain, difficulty swallowing, difficulty handling secretions, 17:50 Respiratory: Positive for cough, with no reported sputum, Negative for wheezing, 17:50 Abdomen/GI: Negative for abdominal pain, vomiting, diarrhea, constipation, 17:50 Neuro: Negative for altered mental status, headache, weakness, 17:50 All other systems are negative, Exam: 17:55 Constitutional: The patient appears in no acute distress, alert, awake, non-toxic, well cp developed, well nourished, 17:55 Head/Face: Normocephalic, atraumatic. cp 17:55 Eyes: Periorbital structures: appear normal, Conjunctiva: normal, no exudate, no injection, Sclera: no appreciated abnormality, Lids and lashes: appear normal, bilaterally, 17:55 ENT: External ear(s): are unremarkable, Ear canal(s): are normal, clear, TM's: bulging, is not appreciated, bilaterally, dullness, bilaterally, erythema, is not appreciated, bilaterally, Nose: is normal, Mouth: Lips: moist, Oral mucosa: pink and intact, moist, Posterior pharynx: is normal, airway is patent, no erythema, no exudate, 17:55 Neck: ROM/movement: is normal, is supple, without pain, no meningismus, no nuchal rigidity, 17:55 Chest/axilla: Inspection: normal, 17:55 Cardiovascular: Rate: tachycardic, Rhythm: regular, 17:55 Respiratory: the patient does not display signs of respiratory distress, Respirations: normal, no use of accessory muscles, no retractions, labored breathing, is not present, Breath sounds: decreased breath sounds, are not appreciated, stridor, is not appreciated, wheezing: is not appreciated, 17:55 Abdomen/GI: Inspection: abdomen appears normal, Palpation: abdomen is soft and non-tender, in all quadrants, 17:55 Skin: no rash present. 17:55 Neuro: Orientation: to person, place \T\ time. Mentation: is normal, Motor: moves all fours, strength is normal, Sensation: is normal, 19:26 ECG was reviewed by the Attending Physician. cp Vital Signs: 17:00 BP 127 / 71; Pulse 89; Resp 18; Pulse Ox 100% on R/A; me1 17:19 BP 118 / 85; Pulse 123; Resp 18 S; Temp 98.8(O); Pulse Ox 98% on R/A; Weight 104.33 kg aa5 (R); Height 5 ft. 7 in. (R); 18:00 BP 142 / 77; Pulse 96; Resp 18; Pulse Ox 100% on R/A; me1 19:00 BP 136 / 72; Pulse 109; Resp 18; Pulse Ox 100% on R/A; me1 20:00 BP 131 / 84; Pulse 113; Resp 18; Pulse Ox 99% on R/A; me1 21:00 BP 129 / 69; Pulse 109; Resp 16; Pulse Ox 99% on R/A; me1 21:29 BP 130 / 86; Pulse 113; Resp 18; Pulse Ox 100% on R/A; me1 17:19 Body Mass Index 36.02 (104.33 kg, 170.18 cm) aa5 MDM: 17:31 Patient medically screened. 20:56 Data reviewed: vital signs, nurses notes, lab test result(s), EKG, radiologic studies, cp plain films. 20:56 Differential Diagnosis: Bronchitis Influenza Viral Syndrome Pneumonia. I considered the cp following discharge prescriptions or medication management in the emergency department Medications were administered in the Emergency Department. See MAR. Independent interpretation of the following test(s) in the Emergency Department EKG: See my EKG interpretation above. Counseling: I had a detailed discussion with the patient and/or guardian regarding the historical points, exam findings, and any diagnostic results supporting the discharge/admit diagnosis, lab results, radiology results, to return to the emergency department if symptoms worsen or persist or if there are any questions or concerns that arise at home. 02/09 17:29 Order name: Flu; Complete Time: 19:14 aa5 02/09 20:37 Interpretation: Reviewed. 02/09 17:29 Order name: COVID-19 SARS RT PCR; Complete Time: 19:14 aa5 02/09 20:37 Interpretation: Reviewed. 02/09 17:29 Order name: Strep; Complete Time: 20:37 aa 02/09 20:37 Interpretation: Reviewed. 02/09 17:58 Order name: Throat Culture EDWI 02/09 19:17 Order name: CBC with Diff; Complete Time: 20:36 02/09 20:36 Interpretation: Normal except: MPV 7.5; POLO% 80.1; LYM% 8.8. 02/09 19:17 Order name: BMP; Complete Time: 20:36 02/09 20:36 Interpretation: Normal except: GFR 83. 02/09 19:17 Order name: Urinalysis W/Microscopic; Complete Time: 20:36 02/09 20:37 Interpretation: Normal except: Urine SG > 1.030; UKET TRACE; UPROT TRACE; UESTR 75; cp BYST Trace. 02/09 19:17 Order name: PREGU; Complete Time: 20:36 02/09 20:37 Interpretation: Reviewed. 02/09 19:17 Order name: XRAY Chest (1 view); Complete Time: 20:55 02/09 20:55 Interpretation: Report review. 02/09 17:33 Order name: EKG; Complete Time: 17:33 02/09 17:33 Order name: EKG - Nurse/Tech; Complete Time: 20:01 02/09 17:33 Order name: Orthostatics; Complete Time: 20:06 cp 02/09 19:17 Order name: IV; Complete Time: 20: 02/09 20:55 Order name: Vital Signs; Complete Time: 21:17 EC:26 Rate is 113 beats/min. Rhythm is regular. NE interval is normal. QRS interval is cp normal. QT interval is normal. T waves are Inverted in lead aVR. Interpreted by me. Reviewed by me. Administered Medications: 20:00 Drug: NS 0.9% IV 1000 ml IV at 1 bolus Per protocol; 1000 mL bolus Route: IV; Rate: 1 me1 bolus; Site: right antecubital; 21:17 Follow up: IV Status: Infusion continued me1 21:32 Follow up: IV Status: Completed infusion me1 20:01 Drug: Tussionex Pennkinetic ER PO Suspension 5 ml PO once Route: PO; me1 21:17 Follow up: Response: No adverse reaction me1 20:01 Drug: Meclizine PO 25 mg PO once Route: PO; me1 21:17 Follow up: Response: No adverse reaction me1 21:32 Follow up: Response: No adverse reaction me1 21:32 Follow up: Response: No adverse reaction me1 Disposition Summary: 02/09/23 20:57 Discharge Ordered Notes: Location: Home cp Problem: new cp Symptoms: have improved cp Condition: Stable cp Diagnosis - Acute pharyngitis, unspecified cp - Cough cp - Dizziness and giddiness cp Followup: cp - With: Private Physician - When: 1 - 2 days - Reason: Worsening of condition Discharge Instructions: - Discharge Summary Sheet cp - Dizziness cp - Sore Throat cp - Cool Mist Vaporizer cp - Cough, Adult cp Forms: - Medication Reconciliation Form cp - Thank You Letter cp - Antibiotic Education cp - Prescription Opioid Use cp - Patient Portal Instructions cp - Leadership Thank You Letter cp - Work release form me1 Prescriptions: - Bromfed DM 2-30-10 mg/5 mL Oral syrup - administer 10 milliliter ORAL route every 6 hours as needed for cold symptoms; cp 240 milliliter; Refills: 0, Product Selection Permitted Signatures: Dispatcher [employer] Marimar Carballo RN RN aa5 Roque Crane PA PA cp Eddleman, Michelle, RN RN me1
--- NOTE | 2023-02-09 20:57 | ER ---
Nurse's Notes [facility] Name: Sherri Perez Age: 27 yrs Sex: Female : 1995 Arrival Date: 02/09/2023 Time: 16:36 Bed 10 Private MD: Diagnosis: Acute pharyngitis, unspecified;Cough;Dizziness and giddiness Presentation: 02/09 17:19 Chief complaint: Patient states: "I just started with a dry cough yesterday and a sore aa5 throat". Denies fever, denies congestion, denies body aches. Coronavirus screen: sore throat. Ebola Screen: Patient denies travel to an Ebola-affected area in the 21 days before illness onset. Initial Sepsis Screen: Does the patient meet any 2 criteria? HR > 90 bpm. Does the patient have a suspected source of infection? No. Patient's initial sepsis screen is negative. Risk Assessment: Do you want to hurt yourself or someone else? Patient reports no desire to harm self or others. Onset of symptoms was January 2023. 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 - Social history:: Smoking status: Patient denies any tobacco usage or history of. Screenin:29 [facility] ED Fall Risk Assessment (Adult) History of falling in the last 3 months, me1 including since admission No falls in past 3 months (0 pts) Confusion or Disorientation No (0 pts) Intoxicated or Sedated No (0 pts) Impaired Gait No (0 pts) Mobility Assist Device Used No (0 pt) Altered Elimination No (0 pt) Score/Fall Risk Level 0 - 2 = Low Risk Maintained a safe environment, Provided non-skid footwear, Hourly rounding (assess needs \\T\\ fall precautionary measures) done. Abuse screen: Denies threats or abuse. Nutritional screening: No deficits noted. Tuberculosis screening: No symptoms or risk factors identified. Assessment: 21:29 General: Appears uncomfortable, well groomed, well developed, well nourished, Behavior me1 is calm, cooperative, appropriate for age, Reports "I just started with a dry cough yesterday and a sore throat". Denies fever, denies congestion, denies body aches. Pain: Denies pain. Neuro: Level of Consciousness is awake, alert, obeys commands, Oriented to person, place, time, situation, Appropriate for age. Cardiovascular: Capillary refill < 3 seconds Patient's skin is warm and dry. Respiratory: Reports cough that is dry, persistent Airway is patent Respiratory effort is even, unlabored, Respiratory pattern is regular, symmetrical, Breath sounds are clear bilaterally. EENT: Throat is reddened. Vital Signs: 17:00 BP 127 / 71; Pulse 89; Resp 18; Pulse Ox 100% on R/A; me1 17:19 BP 118 / 85; Pulse 123; Resp 18 S; Temp 98.8(O); Pulse Ox 98% on R/A; Weight 104.33 kg aa5 (R); Height 5 ft. 7 in. (R); 18:00 BP 142 / 77; Pulse 96; Resp 18; Pulse Ox 100% on R/A; me1 19:00 BP 136 / 72; Pulse 109; Resp 18; Pulse Ox 100% on R/A; me1 20:00 BP 131 / 84; Pulse 113; Resp 18; Pulse Ox 99% on R/A; me1 21:00 BP 129 / 69; Pulse 109; Resp 16; Pulse Ox 99% on R/A; me1 21:29 BP 130 / 86; Pulse 113; Resp 18; Pulse Ox 100% on R/A; me1 17:19 Body Mass Index 36.02 (104.33 kg, 170.18 cm) aa5 ED Course: 16:39 Patient arrived in ED. im 16:40 Roque Crane PA is PHCP. cp 16:40 Roque Pemberton MD is Attending Physician. cp 17:18 Arm band placed on. aa5 17:20 Triage completed. aa5 18:47 Delia Dave, ISRA is Primary Nurse. me1 20:00 Inserted saline lock: 22 gauge in right antecubital area, using aseptic technique. me1 20:01 XRAY Chest (1 view) Sent. me1 20:06 PREGU Sent. me1 20:06 Urinalysis W/Microscopic Sent. me1 20:06 BMP Sent. me1 20:06 CBC with Diff Sent. me1 20:07 XRAY Chest (1 view) In Process Unspecified. EDMS 21:29 Patient has correct armband on for positive identification. Placed in gown. Bed in low me1 position. Call light in reach. Side rails up X2. Provided Education on: POC. Verbalized understanding. . 21:29 No provider procedures requiring assistance completed. IV discontinued, intact, me1 bleeding controlled, No redness/swelling at site. Pressure dressing applied. Administered Medications: 20:00 Drug: NS 0.9% IV 1000 ml IV at 1 bolus Per protocol; 1000 mL bolus Route: IV; Rate: 1 me1 bolus; Site: right antecubital; 21:17 Follow up: IV Status: Infusion continued me1 21:32 Follow up: IV Status: Completed infusion me1 20:01 Drug: Tussionex Pennkinetic ER PO Suspension 5 ml PO once Route: PO; me1 21:17 Follow up: Response: No adverse reaction me1 20:01 Drug: Meclizine PO 25 mg PO once Route: PO; me1 21:17 Follow up: Response: No adverse reaction me1 21:32 Follow up: Response: No adverse reaction me1 21:32 Follow up: Response: No adverse reaction me1 Medication: 21:29 VIS not applicable for this client. me1 Outcome: 20:57 Discharge ordered by . elpidio 21:41 Discharged to home ambulatory, me1 21:41 Condition: stable 21:41 Discharge instructions given to patient, Instructed on discharge instructions, follow up and referral plans. medication usage, Demonstrated understanding of instructions, follow-up care, medications, Prescriptions given X 1, 21:41 Patient left the ED. me1 Signatures: Dispatcher [employer] EDVT Marimar Wilson RN RN aa5 Roque Crane PA PA Yolie Alegria Michelle RN RN me1 Corrections: (The following items were deleted from the chart) 21:29 17:19 Chief complaint: Patient states: "I just started with a dry cough yesterday and a me1 sore throat". Denies fever, denies congestion, denies body aches. aa5
[2023-02-09 22:00] VITALS: TEMP 98.8
[2023-02-09 22:08] VITALS: BP 130/86; O2SAT 100
--- NOTE | 2023-02-11 15:19 | EKG ---
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
== END 2023-02-09 21:41 | disposition home or self-care (01) ==
LOC: ER 16:36
DX: R05.9 Cough, unspecified (principal); J02.9 Acute pharyngitis, unspecified; R42 Dizziness and giddiness; Z11.52 Encounter for screening for COVID-19
CPT/HCPCS: 36415; 71045; 80048; 81001; 81025; 85025; 87070; 87081; 87635; 87804; 93005; 96360; 99284; J7030; J8597

== ENCOUNTER → 2023-03-26 | Emergency (ER) | payer SELFPAY ==
--- OUTSIDE RECORDS SUMMARY | 2023-03-26 10:11 | XMS REPORT | Continuity of Care Document ---
Author Name Unknown Address [address] [facility] [address] [place] [address] [facility] Address [address] [facility] [address] [place] [address] Care Team Providers Care Crime Analyst Name Role Phone NINA HAGAN Primary Care Physician Unavail able ANGELINE PEDROZA Attending Clinician Unavailable ANGELINE PEDROZA Attending Clinician Unavailable NINA HAGAN Attending Clinician UnavailNina Lucero Attending Clinician [phone] NICOLE RUIZ Attending Clinician UnavailNicole Nuno Attending Clinician [phone] Doctor Unassigned, [place] Attending Clinician U Laurie Lam MD Attending Clinician [phone] Adela Olmstead Attending Clinician + ADELA FLAHERTY Attending Clinician Unavail able Yenni Capps Attending Clinician [phone] YENNI RIVAS Attending Clinician Unavailab ANNA Méndez Attending Clinician Unavailable HANY POWERS Attending Clinician Unavailable UNKNOWN, ATTENDING Attending Clinician Unavailab SHEEBA Niño Attending Clinician Unavailable Payers Payer Name Policy Type Policy Number Effective Date Expirati on Date Source Problems Condition Name Condition Details Condition Category Status Onset Date Resolution Date Last Treatment Date Treating Clinician Comments Source Other general counseling and advice for contracept erna management Other general counseling and advice for contracept erna management Disease Active 11-07 00:00: 00 [facility] History of anxiety History of anxiety Disease Active 07-22 00:00: 00 [facility] IUD (intrauter ine device) in place IUD (intrauter ine device) in place Disease Active 07-19 00:00: 00 [facility] Class 2 obesity due to excess calories with body mass index (BMI) of 36.0 to 36.9 in adult, unspecifie d whether serious comorbidit y present Class 2 obesity due to excess calories with body mass index (BMI) of 36.0 to 36.9 in adult, unspecifie d whether serious comorbidit y present Disease Active 07-19 00:00: 00 [facility] BMI 36.0-36.9, adult BMI 36.0-36.9, adult Disease Active 07-19 00:00: 00 [facility] Class 2 obesity due to excess calories with body mass index (BMI) of 36.0 to 36.9 in adult, unspecifie d whether serious comorbidit y present Class 2 obesity due to excess calories with body mass index (BMI) of 36.0 to 36.9 in adult, unspecifie d whether serious comorbidit y present Disease Active 07-19 00:00: 00 [facility] Pain pelvic Pain pelvic Disease Active 2016-03 0-16 00:00: 00 [facility] Screening examinatio n for STD (sexually transmitte d disease) Screening examinatio n for STD (sexually transmitte d disease) Disease Active 2016-03 0 00:00: 00 [facility] Allergies, Adverse Reactions, Alerts Allergy Name Allergy Type Status Severity Reaction(s) Onset Date Inactive Date Treating Clinician Comments Source LATEX DRUG INGREDI Active Med Rash 2022-03 00:00: 00 [facility] Latex Drug Allergy Active Rash 2022-03 00:00: 00 [facility] NAPROXEN SODIUM DRUG INGREDI Active High Other-Cmnt 3- 00:00: 00 [facility] MORPHINE DRUG INGREDI Active Low Unknown-Cmnt 06-10 00:00: 00 [facility] Naproxen Sodium Propensi ty to adverse reaction s to drug Active Other - See comments 06-10 00:00: 00 Throat closes when takes Aleve. [facility] Morphine Propensi ty to adverse reaction s to drug Active Unknown - See comments 06-10 00:00: 00 When morphine given through IV makes patient fell like she is on fire. [facility] NO KNOWN ALLERGIE S Drug Class Active [facility] Social History Social Habit Start Date Stop Date Quantity Comments Source Gender identity [facility] intake 2023-02-25 00:00:00 2023-02-25 00:00:00 Current non-drinker of alcohol (finding) [facility] History of Social function 2023-02-25 00:00:00 2023-02-25 00:00:00 [facility] Exposure to SARS-CoV-2 (event) 2022-05-31 00:00:00 2022-06-10 15:12:00 Not sure [facility] Tobacco use and exposure 2016-12-25 00:00:00 2016-12-25 00:00:00 Smokeless tobacco non-user [facility] Sex Assigned At 1995 00:00:00 1995 00:00:00 [facility] Smoking Status Start Date Stop Date Source Never smoked tobacco [facility] Medications Ordered Medication Name Filled Medication Name Start Date Stop Date Current Medication? Ordering Clinician Indication Dosage Frequency Signature (SIG) Comments Components Source SERTraline 100 mg tablet 2022-03 15:32: 52 02-25 00:00 :00 No 100mg Take 1 tablet by mouth in the morning. [facility] SERTraline 100 mg tablet 2022-03 15:32: 52 02-25 00:00 :00 No 100mg Take 1 tablet by mouth in the morning. [facility] hydrOXYzine 50 mg tablet 2022-03 15:32: 49 02-25 00:00 :00 No 50mg Take 1 tablet by mouth in the morning. Takes at night to help sleep. Gets from Dr. Cyn Sifuentes. [facility] hydrOXYzine 50 mg tablet 2022-03 15:32: 49 02-25 00:00 :00 No 50mg Take 1 tablet by mouth in the morning. Takes at night to help sleep. Gets from Dr. Cyn Sifuentes. [facility] buPROPion SR (WELLBUTRIN SR) 150 mg SR tablet 2022-03 15:32: 46 02-25 00:00 :00 No 150mg Take 1 tablet by mouth in the morning and 1 tablet in the evening. [facility] buPROPion SR (WELLBUTRIN SR) 150 mg SR tablet 2022-03 15:32: 46 02-25 00:00 :00 No 150mg Take 1 tablet by mouth in the morning and 1 tablet in the evening. [facility] norgestimat e-ethinyl estradioL 0.18/0.215/ 0.25 mg-25 mcg tablet 06-26 00:00: 00 Yes [id number] 1{tbl} Take 1 tablet by mouth in the morning. [facility] norgestimat e-ethinyl estradioL 0.18/0.215/ 0.25 mg-25 mcg tablet 06-26 00:00: 00 Yes [id number] 1{tbl} Take 1 tablet by mouth in the morning. [facility] norgestimat e-ethinyl estradioL 0.18/0.215/ 0.25 mg-25 mcg tablet 06-26 00:00: 00 Yes [id number] 1{tbl} Take 1 tablet by mouth in the morning. [facility] norgestimat e-ethinyl estradioL 0.18/0.215/ 0.25 mg-25 mcg tablet 06-26 00:00: 00 Yes [id number] 1{tbl} Take 1 tablet by mouth in the morning. [facility] norgestimat e-ethinyl estradioL 0.18/0.215/ 0.25 mg-25 mcg tablet 06-26 00:00: 00 2023- 12-14 00:00 :00 No [id number] 1{tbl} Take 1 tablet by mouth in the morning. [facility] norgestimat e-ethinyl estradioL 0.18/0.215/ 0.25 mg-25 mcg tablet 06-26 00:00: 00 02-25 00:00 :00 No [id number] 1{tbl} Take 1 tablet by mouth in the morning. [facility] SERTraline 100 mg tablet 06-10 15:25: 49 Yes 100mg Take 1 tablet by mouth in the morning. [facility] buPROPion SR (WELLBUTRIN SR) 150 mg SR tablet 06-10 15:25: 49 Yes 150mg Take 1 tablet by mouth in the morning and 1 tablet in the evening. [facility] hydrOXYzine 50 mg tablet 06-10 15:25: 49 Yes 50mg Take 1 tablet by mouth in the morning. Takes at night to help sleep. Gets from Dr. Cyn Sifuentes. [facility] SERTraline 100 mg tablet 06-10 15:25: 49 Yes 100mg Take 1 tablet by mouth in the morning. [facility] buPROPion SR (WELLBUTRIN SR) 150 mg SR tablet 06-10 15:25: 49 Yes 150mg Take 1 tablet by mouth in the morning and 1 tablet in the evening. [facility] hydrOXYzine 50 mg tablet 06-10 15:25: 49 Yes 50mg Take 1 tablet by mouth in the morning. Takes at night to help sleep. Gets from Dr. Cyn Sifuentes. [facility] SERTraline 100 mg tablet 06-10 15:25: 49 Yes 100mg Take 1 tablet by mouth in the morning. [facility] buPROPion SR (WELLBUTRIN SR) 150 mg SR tablet 06-10 15:25: 49 Yes 150mg Take 1 tablet by mouth in the morning and 1 tablet in the evening. [facility] hydrOXYzine 50 mg tablet 06-10 15:25: 49 Yes 50mg Take 1 tablet by mouth in the morning. Takes at night to help sleep. Gets from Dr. Cyn Sifuentes. [facility] SERTraline 100 mg tablet 06-10 15:25: 49 Yes 100mg Take 1 tablet by mouth in the morning. [facility] buPROPion SR (WELLBUTRIN SR) 150 mg SR tablet 06-10 15:25: 49 Yes 150mg Take 1 tablet by mouth in the morning and 1 tablet in the evening. [facility] hydrOXYzine 50 mg tablet 06-10 15:25: 49 Yes 50mg Take 1 tablet by mouth in the morning. Takes at night to help sleep. Gets from Dr. Cyn Sifuentes. [facility] SERTraline 100 mg tablet 06-10 15:25: 49 Yes 100mg Take 1 tablet by mouth in the morning. [facility] buPROPion SR (WELLBUTRIN SR) 150 mg SR tablet 06-10 15:25: 49 Yes 150mg Take 1 tablet by mouth in the morning and 1 tablet in the evening. [facility] hydrOXYzine 50 mg tablet 06-10 15:25: 49 Yes 50mg Take 1 tablet by mouth in the morning. Takes at night to help sleep. Gets from Dr. Cyn Sifuentes. [facility] SERTraline 100 mg tablet 06-10 15:25: 49 Yes 100mg Take 1 tablet by mouth in the morning. [facility] buPROPion SR (WELLBUTRIN SR) 150 mg SR tablet 06-10 15:25: 49 Yes 150mg Take 1 tablet by mouth in the morning and 1 tablet in the evening. [facility] hydrOXYzine 50 mg tablet 06-10 15:25: 49 Yes 50mg Take 1 tablet by mouth in the morning. Takes at night to help sleep. Gets from Dr. Cyn Sifuentes. [facility] SERTraline 100 mg tablet 06-10 15:25: 49 Yes 100mg Take 1 tablet by mouth in the morning. [facility] buPROPion SR (WELLBUTRIN SR) 150 mg SR tablet 06-10 15:25: 49 Yes 150mg Take 1 tablet by mouth in the morning and 1 tablet in the evening. [facility] hydrOXYzine 50 mg tablet 06-10 15:25: 49 Yes 50mg Take 1 tablet by mouth in the morning. Takes at night to help sleep. Gets from Dr. Cyn Sifuentes. [facility] norgestimat e-ethinyl estradioL 0.18/0.215/ 0.25 mg-25 mcg tablet 06-10 00:00: 00 Yes [id number] 1{tbl} Take 1 tablet by mouth in the morning. [facility] norgestimat e-ethinyl estradioL 0.18/0.215/ 0.25 mg-25 mcg tablet 06-10 00:00: 00 Yes [id number] 1{tbl} Take 1 tablet by mouth in the morning. [facility] norgestimat e-ethinyl estradioL 0.18/0.215/ 0.25 mg-25 mcg tablet 06-10 00:00: 00 Yes [id number] 1{tbl} Take 1 tablet by mouth in the morning. [facility] norgestimat e-ethinyl estradioL 0.18/0.215/ 0.25 mg-25 mcg tablet 06-10 00:00: 00 06-26 00:00 :00 No [id number] 1{tbl} Take 1 tablet by mouth in the morning. [facility] No known medications 11-07 14:35: 45 No No known medication s [facility] terconazole 0.8 % vaginal cream 06-16 00:00: 00 11-07 00:00 :00 No [id number] 1{appli cator} Insert 1 Applicator into vagina at bedtime. [facility] terconazole 0.8 % vaginal cream 06-16 00:00: 00 11-07 00:00 :00 No [id number] 1{appli cator} Insert 1 Applicator into vagina at bedtime. [facility] terconazole 0.8 % vaginal cream 08-07 00:00: 00 11-07 00:00 :00 No [id number] 1{appli cator} Insert 1 Applicator into vagina at bedtime. [facility] terconazole 0.8 % vaginal cream 08-07 00:00: 00 11-07 00:00 :00 No [id number] 1{appli cator} Insert 1 Applicator into vagina at bedtime. [facility] norgestimat e-ethinyl estradioL 0.18/0.215/ 0.25 mg-25 mcg tablet 07-23 00:00: 00 11-07 00:00 :00 No [id number] 1{tbl} Take 1 tablet by mouth daily. [facility] norgestimat e-ethinyl estradioL 0.18/0.215/ 0.25 mg-25 mcg tablet 07-23 00:00: 00 11-07 00:00 :00 No [id number] 1{tbl} Take 1 tablet by mouth daily. [facility] norgestimat e-ethinyl estradiol 0.18/0.215/ 0.25 mg-35 mcg (28) tablet 2016-03 0-16 00:00: 00 03-26 00:00 :00 No [id number] 1{tbl} Take 1 tablet by mouth daily. [facility] Immunizations Ordered Immunization Name Filled Immunization Name Date Status Comments Source SARS-COV-2 COVID-19 PFIZER VACCINE 2020-04-08 00:00:00 Completed [facility] SARS-COV-2 COVID-19 PFIZER VACCINE 2020-04-08 00:00:00 Completed [facility] SARS-COV-2 COVID-19 PFIZER VACCINE 2020-04-08 00:00:00 Completed [facility] SARS-COV-2 COVID-19 PFIZER VACCINE 2020-04-08 00:00:00 Completed [facility] SARS-COV-2 COVID-19 PFIZER VACCINE 2020-04-08 00:00:00 Completed [facility] SARS-COV-2 COVID-19 PFIZER VACCINE 2020-04-08 00:00:00 Completed [facility] SARS-COV-2 COVID-19 PFIZER VACCINE 2020-04-08 00:00:00 Completed [facility] SARS-COV-2 COVID-19 PFIZER VACCINE 2020-04-08 00:00:00 Completed [facility] Pfizer COVID-19 Vaccine Pfizer COVID-19 Vaccine 2020-04-08 00:00:00 Completed SARS-COV-2 COVID-19 PFIZER VACCINE 2020-03-16 00:00:00 Completed [facility] SARS-COV-2 COVID-19 PFIZER VACCINE 2020-03-16 00:00:00 Completed [facility] SARS-COV-2 COVID-19 PFIZER VACCINE 2020-03-16 00:00:00 Completed [facility] SARS-COV-2 COVID-19 PFIZER VACCINE 2020-03-16 00:00:00 Completed [facility] SARS-COV-2 COVID-19 PFIZER VACCINE 2020-03-16 00:00:00 Completed [facility] SARS-COV-2 COVID-19 PFIZER VACCINE 2020-03-16 00:00:00 Completed [facility] SARS-COV-2 COVID-19 PFIZER VACCINE 2020-03-16 00:00:00 Completed [facility] SARS-COV-2 COVID-19 PFIZER VACCINE 2020-03-16 00:00:00 Completed [facility] Pfizer COVID-19 Vaccine Pfizer COVID-19 Vaccine 2020-03-16 00:00:00 Completed HPV9 2016-12-25 00:00:00 Completed [facility] HPV9 2016-12-25 00:00:00 Completed [facility] HPV9 2016-12-25 00:00:00 Completed [facility] HPV9 2016-12-25 00:00:00 Completed [facility] HPV9 2016-12-25 00:00:00 Completed [facility] HPV9 2016-12-25 00:00:00 Completed [facility] HPV9 2016-12-25 00:00:00 Completed [facility] HPV9 2016-12-25 00:00:00 Completed [facility] HPV 2013-03-15 00:00:00 Completed [facility] HPV 2013-03-15 00:00:00 Completed [facility] HPV 2013-03-15 00:00:00 Completed [facility] HPV 2013-03-15 00:00:00 Completed [facility] HPV 2013-03-15 00:00:00 Completed [facility] HPV 2013-03-15 00:00:00 Completed [facility] HPV 2013-03-15 00:00:00 Completed [facility] HPV 2013-03-15 00:00:00 Completed [facility] TDAP 2011-03-15 00:00:00 Completed [facility] TDAP 2011-03-15 00:00:00 Completed [facility] TDAP 2011-03-15 00:00:00 Completed [facility] TDAP 2011-03-15 00:00:00 Completed [facility] TDAP 2011-03-15 00:00:00 Completed [facility] TDAP 2011-03-15 00:00:00 Completed [facility] TDAP 2011-03-15 00:00:00 Completed [facility] TDAP 2011-03-15 00:00:00 Completed [facility] TDAP Unknown Completed [facility] HPV Unknown Completed [facility] HPV9 Unknown Completed [facility] SARS-COV-2 COVID-19 PFIZER VACCINE Unknown Completed [facility] SARS-COV-2 COVID-19 PFIZER VACCINE Unknown Completed [facility] TDAP Unknown Completed [facility] HPV Unknown Completed [facility] HPV9 Unknown Completed [facility] SARS-COV-2 COVID-19 PFIZER VACCINE Unknown Completed [facility] SARS-COV-2 COVID-19 PFIZER VACCINE Unknown Completed [facility] TDAP Unknown Completed [facility] HPV Unknown Completed [facility] HPV9 Unknown Completed [facility] SARS-COV-2 COVID-19 PFIZER VACCINE Unknown Completed [facility] SARS-COV-2 COVID-19 PFIZER VACCINE Unknown Completed [facility] TDAP Unknown Completed [facility] HPV Unknown Completed [facility] HPV9 Unknown Completed [facility] SARS-COV-2 COVID-19 PFIZER VACCINE Unknown Completed [facility] SARS-COV-2 COVID-19 PFIZER VACCINE Unknown Completed [facility] TDAP Unknown Completed [facility] HPV Unknown Completed [facility] HPV9 Unknown Completed [facility] TDAP Unknown Completed [facility] HPV Unknown Completed [facility] HPV9 Unknown Completed [facility] SARS-COV-2 COVID-19 PFIZER VACCINE Unknown Completed [facility] SARS-COV-2 COVID-19 PFIZER VACCINE Unknown Completed [facility] TDAP Unknown Completed [facility] HPV Unknown Completed [facility] HPV9 Unknown Completed [facility] SARS-COV-2 COVID-19 PFIZER VACCINE Unknown Completed [facility] SARS-COV-2 COVID-19 PFIZER VACCINE Unknown Completed [facility] TDAP Unknown Completed [facility] HPV Unknown Completed [facility] HPV9 Unknown Completed [facility] SARS-COV-2 COVID-19 PFIZER VACCINE Unknown Completed [facility] SARS-COV-2 COVID-19 PFIZER VACCINE Unknown Completed [facility] TDAP Unknown Completed [facility] HPV Unknown Completed [facility] HPV9 Unknown Completed [facility] SARS-COV-2 COVID-19 PFIZER VACCINE Unknown Completed [facility] SARS-COV-2 COVID-19 PFIZER VACCINE Unknown Completed [facility] Vital Signs Vital Name Observation Time Observation Value Comments S ource Systolic blood pressure 2023-02-25 20:48:00 118 mm[Hg] [facility] Diastolic blood pressure 2023-02-25 20:48:00 75 mm[Hg] [facility] Heart rate 2023-02-25 20:48:00 77 /[facility] temperature 2023-02-25 20:48:00 36.39 Izabel [facility] Respiratory rate 2023-02-25 20:48:00 18 /min [facility] Body height 2023-02-25 20:48:00 170.2 cm [facility] weight 2023-02-25 20:48:00 105.461 kg Univ [facility] BMI 2023-02-25 20:48:00 36.41 kg/m2 [facility] Systolic blood pressure 2022-06-10 20:16:00 123 mm[Hg] [facility] Diastolic blood pressure 2022-06-10 20:16:00 76 mm[Hg] [facility] Heart rate 2022-06-10 20:16:00 88 /min Unive [facility] Body temperature 2022-06-10 20:16:00 36.44 Izabel [facility] Respiratory rate 2022-06-10 20:16:00 17 /min [facility] Body height 2022-06-10 20:16:00 170.2 cm [facility] Body weight 2022-06-10 20:16:00 112.095 kg [facility] BMI 2022-06-10 20:16:00 38.71 kg/m2 [facility] Systolic blood pressure 2021-11-07 19:30:00 128 mm[Hg] [facility] Diastolic blood pressure 2021-11-07 19:30:00 82 mm[Hg] [facility] Heart rate 2021-11-07 19:29:00 73 /min Unive [facility] Body temperature 2021-11-07 19:29:00 36.89 Izabel [facility] Respiratory rate 2021-11-07 19:29:00 18 /min [facility] Body height 2021-11-07 19:29:00 170.2 cm [facility] Body weight 2021-11-07 19:29:00 104.101 kg [facility] BMI 2021-11-07 19:29:00 35.94 kg/m2 [facility] Procedures Procedure Date / Time Performed Performing Clinicia n Source ASSIGNMENT OF BENEFITS 2023-02-25 20:07:50 Docto r Unassigned, [place] [facility] POCT TEST 2022-06-10 21:12:00 Valeriano Hagan [facility] POCT URINALYSIS W/O SPECIFIC GRAVITY 2022-06-10 20:38:00 Nina Hagan [facility] Encounters Start Date/Time End Date/Time Encounter Type Admission Type Attending Clinicians Care Facility Care Department Encounter ID Source 2023-03-02 00:00:00 2023-03-02 00:00:00 Telephone Nina Hagan [facility] WORK[employer]CE ADVISOR [facility] 1.2.840.114 350.1.13.10 4.2.7.2.686 [id number] [facility] 2023-02-25 14:15:00 2023-02-25 15:47:13 Outpatient R NICOLE RUIZ [facility] [id number] [facility] 2023-02-25 14:15:00 2023-02-25 15:47:13 Office Visit Nicole Ruiz [facility] WORKFORCE ADVISOR [facility] 1.2.840.114 350.1.13.10 4.2.7.2.686 [id number] [facility] 2023-02-25 00:00:00 2023-02-25 00:00:00 Orders Only Doctor Unassigned, [place] [facility] 1.2.840.114 350.1.13.10 4.2.7.2.686 [id number] [facility] 2022-09-24 08:30:00 2022-09-24 08:30:00 Outpatient R [facility] [id number] [facility] 2022-09-19 00:00:00 2022-09-19 00:00:00 Laurie Strange [facility] WORKFORCE ADVISOR [facility] 1.2.840.114 350.1.13.10 4.2.7.2.686 [id number] [facility] 2022-06-25 00:00:00 2022-06-25 00:00:00 Telephone Nina Hagan [facility] WORKFORCE ADVISOR [facility] 1.2.840.114 350.1.13.10 4.2.7.2.686 [id number] [facility] 2022-06-25 00:00:00 2022-06-25 00:00:00 Telephone Nina Hagan [facility] WORKFORCE ADVISOR [facility] 1.2.840.114 350.1.13.10 4.2.7.2.686 [id number] [facility] 2022-06-18 00:00:00 2022-06-18 00:00:00 Telephone Nina Hagan [facility] WORK[employer]CE ADVISOR [facility] 1.2.840.114 350.1.13.10 4.2.7.2.686 [id number] [facility] 2022-06-12 14:06:03 2022-06-12 14:06:[address] [facility] [id number] Prabhjot Bravo 2022-06-10 14:45:00 2022-06-10 16:35:07 Outpatient R NINA HAGAN [facility] [id number] [facility] 2022-06-10 14:45:00 2022-06-10 16:35:07 Office Visit Nina Hagan [facility] WORKFORCE ADVISOR [facility] 1.2.840.114 350.1.13.10 4.2.7.2.686 [id number] [facility] 2022-03-04 17:31:33 2022-03-04 17:31:33 Outpatient SFA SFA [id number] Prabhojt Bravo 2021-11-14 00:00:00 2021-11-14 00:00:00 Patient Secure Msg Adela Flaherty [facility] WORKFORCE ADVISOR [facility] 1.2.840.114 350.1.13.10 4.2.7.2.686 [id number] [facility] 2021-11-14 00:00:00 2021-11-14 00:00:00 Patient Secure Msg Adela Flaherty [facility] WORKFORCE ADVISOR [facility] 1.840.114 350.1.13.10 4.2.7.2.686 [id number] [facility] 2021-11-13 00:00:00 2021-11-13 00:00:00 Telephone GeovannydeangeloAdela heaton [facility] WORK[employer]CE ADVISOR [facility] 1.840.114 350.1.13.10 4.2.7.2.686 [id number] [facility] 2021-11-07 14:15:00 2021-11-07 15:29:58 Office Visit Adela Flaherty [facility] WORKFORCE ADVISOR [facility] 1.840.114 350.1.13.10 4.2.7.2.686 [id number] [facility] 2021-11-07 14:15:00 2021-11-07 15:29:58 Outpatient R ADELA FLAHERTY [facility] [id number] [facility] 2021-11-07 14:15:00 2021-11-07 14:15:00 Outpatient R ADELA FLAHERTY [facility] [id number] [facility] 2021-11-07 00:00:00 2021-11-07 00:00:00 Orders Only Doctor Unassigned, [place] [facility] 1.0.114 350.1.13.10 4.2.7.2.686 [id number] [facility] 2021-07-01 00:00:00 2021-07-01 00:00:00 Yenni Lizarraga [facility] WORKFORCE ADVISOR [facility] 1.0.114 350.1.13.10 4.2.7.2.686 [id number] [facility] 2021-06-26 09:45:00 2021-06-26 09:45:00 Outpatient R RIVAS, ROSROMIE [facility] [id number] [facility] 2021-06-26 09:45:00 2021-06-26 09:45:00 Outpatient ANAY NYHÉCTORJoe [facility] [id number] [facility] 2021-06-17 00:00:00 2021-06-17 00:00:00 Patient Secure Msg Doctor Unassigned, [place] [facility] 1.2.840.114 350.1.13.10 4.2.7.2.686 [id number] [facility] 2021-06-16 00:00:00 2021-06-16 00:00:00 Telephone Trent Yenni [facility] WORKFORCE ADVISOR [facility] 1.2.840.114 350.1.13.10 4.2.7.2.686 [id number] [facility] 2021-06-16 00:00:00 2021-06-16 00:00:00 Telephone Anay Rivasromie [facility] WORKFORCE ADVISOR [facility] 1.2.840.114 350.1.13.10 4.2.7.2.686 [id number] [facility] 2021-06-16 00:00:00 2021-06-16 00:00:00 Telephone Trent Anayromie Chavez [facility] WORKFORCE ADVISOR [facility] 1.2.840.114 350.1.13.10 4.2.7.2.686 [id number] [facility] 2021-06-16 00:00:00 2021-06-16 00:00:00 Telephone Anay Rivasromie [facility] WORKFORCE ADVISOR [facility] 1.2.840.114 350.1.13.10 4.2.7.2.686 [id number] [facility] 2021-06-16 00:00:00 2021-06-16 00:00:00 Patient Secure Msg Doctor Unassigned, [place] [facility] WORKFORCE ADVISOR [facility] CH[facility] 1.2.840.114 350.1.13.10 4.2.7.2.686 [id number] [facility] 2021-06-13 00:00:00 2021-06-13 00:00:00 Patient Secure Msg Yenni Rivas [facility] WORKFORCE ADVISOR [facility] CHILD [facility] 1.2.840.114 350.1.13.10 4.2.7.2.686 [id number] [facility] 2021-06-12 08:15:00 2021-06-12 09:25:44 Outpatient R YENNI RIVAS [facility] [id number] [facility] 2021-06-12 08:15:00 2021-06-12 09:25:44 Office Visit Yenni Rivas [facility] WORKFORCE ADVISOR [facility] CHILD [facility] 1.2.840.114 350.1.13.10 4.2.7.2.686 [id number] [facility] 2021-06-12 00:00:00 2021-06-12 00:00:00 Letter (Out) Yenni Rivas [facility] WORKFORCE ADVISOR [facility] 1.2.840.114 350.1.13.10 4.2.7.2.686 [id number] [facility] 2021-06-06 08:30:00 2021-06-06 08:30:00 Outpatient R ANNA STOCK [facility] [id number] [facility] 2020-10-16 09:15:00 2020-10-16 09:15:00 Outpatient R YENNI RIVAS [facility] [id number] [facility] 2020-08-07 00:00:00 2020-08-07 00:00:00 Telephone Yenni Rivas [facility] WORKFORCE ADVISOR [facility] 1.2.840.114 350.1.13.10 4.2.7.2.686 [id number] [facility] 2020-07-23 14:39:39 2020-07-23 15:21:56 Office Visit Yenni Rivas [facility] WORKFORCE ADVISOR [facility] 1.2.840.114 350.1.13.10 4.2.7.2.686 [id number] [facility] 2020-07-23 14:30:00 2020-07-23 14:30:00 Outpatient YENNI NY [facility] [id number] [facility] 2020-07-19 10:54:01 2020-07-19 11:36:34 Office Visit Yenni Rivas [facility] WORKFORCE ADVISOR [facility] 1.2.840.114 350.1.13.10 4.2.7.2.686 [id number] [facility] 2020-07-19 10:45:00 2020-07-19 10:45:00 Outpatient ANAY NYROMIE [facility] [id number] [facility] 2020-07-19 00:00:00 2020-07-19 00:00:00 Orders Only Doctor Unassigned, [place] [facility] 1.2.840.114 350.1.13.10 4.2.7.2.686 [id number] [facility] 2020-04-08 13:50:00 2020-04-08 13:50:00 Outpatient HANY GUIDRY [facility] [id number] [facility] 2020-04-08 07:40:00 2020-04-08 07:40:00 Outpatient HANY GUIDRY [facility] [id number] [facility] 2020-04-08 00:00:00 2020-04-08 00:00:00 Outpatient GCCOVIDV [facility] [id number] [facility] 2020-03-27 00:00:00 2020-03-27 00:00:00 Patient Secure Msg Doctor Unassigned, [place] [facility] 1.2.840.114 350.1.13.10 4.2.7.2.686 [id number] [facility] 2020-03-26 14:30:00 2020-03-26 14:30:00 Outpatient SHAHRZAD JIMENES [facility] [id number] [facility] 2020-03-16 11:20:00 2020-03-16 11:20:00 Outpatient HANY GUIDRY [facility] [id number] [facility] 2020-03-16 00:00:00 2020-03-16 00:00:00 Outpatient GCCOVIDV [facility]OVID[facility] [id number] [facility] 2020-03-02 00:00:00 2020-03-02 00:00:00 Patient Secure Msg Doctor Unassigned, [place] [facility] 1.2.840.114 350.1.13.10 4.2.7.2.686 [id number] [facility] 2020-03-01 08:15:00 2020-03-01 08:15:00 Outpatient SHEEBA GONZALEZ [facility] [id number] [facility] 2020-01-31 12:00:00 2020-01-31 12:00:00 Outpatient R [facility] [id number] [facility] Results Test Description Test Time Test Comments Results Result Co [facility]ments [id number] 21:13:00* Test Item Value Reference Range Interpretation Comme nts POCT PREG (test code = 1605) Negative On board controls acceptable with C Line (test code = 3574) Yes POCT PREG LOT # (test code = 3575) [id number] POCT PREG TEST DATE ( test code = 3576) 07-13-2023 Lab Interpretation (test cod e = 51498-2) Normal [facility] W/O SPECIFIC [id number] 20:39:00* Test Item Value Reference Range Interpretation Comme nts POCT PH U (test code = 3254) 5 mg/dl 5-8 POCT U LEUK EST (test code = 3263) Negative Negative - Negative POCT U NIT (test code = 3262) Negative Negative - Negati ve POCT U PROT (test code = 3259) Trace Negative - Negat erna POCT U GLU (test code = 3256) 250 Negative - Negati ve POCT U KETONE (test code = 3258) ++ Negative - Neg ative POCT U BLD (test code = 3257) Negative Negative - Negati ve Lab Interpretation (test cod e = 63258-5) Abnormal [facility] W/O SPECIFIC [id number] 20:39:00* Test Item Value Reference Range Interpretation Comme nts POCT PH U (test code = 3254) 5 mg/dl 5-8 POCT U LEUK EST (test code = 3263) Negative Negative - Negative POCT U NIT (test code = 3262) Negative Negative - Negati ve POCT U PROT (test code = 3259) Trace Negative - Negat erna POCT U GLU (test code = 3256) 250 Negative - Negati ve POCT U KETONE (test code = 3258) ++ Negative - Neg ative POCT U BLD (test code = 3257) Negative Negative - Negati ve Lab Interpretation (test cod e = 73663-9) Abnormal [facility] Notes Date/Time Note Provider Source 2023-03-04 16:42:05 5cQWF60pHt1EizO3IKtl Wb7ICWTq LGCHYYVBvkc+aT+pz0bZcU8TePZF Gbbn8bqs7121-22-89G29:42:05F ormatting of this note might be different from the original.Spoke to patient regarding lab results from 02/25/2023. Informed of results and questions answered. 37052-0Odyuveuxj encounter CvreZG2581-11-97M52:42:42Tel ephone encounter NoteTXT1.2.840.866411.1.13.1 04.2.7.2.541734|[id number] Available for patient blhg91654-9HiqaUIQNSGCZQJMWb rmatted C-CDA narrative nioz159913136Wvzpehhux Gutierrez [address] [id number] NK9119-07-92H38:42:421.2.840 .205340.1.72.3.15|1.2.840.11 4350.1.13.104.2.7.2.727879_1 [id number] Maia Mota [facility] 2023-03-02 11:42:04 wH+f2Rn3107kiCUxFHrT WVYZbH39 bqG9WpjfaooK3+L4TfC1ykL4MYJS QdJp74p28386-58-87L50:42:04F ormatting of this note might be different from the original.Fuentes uBrton is a 27 year old femalePatient requesting a results review from labs taken on 02/25/23Please contact pt at [phone] (home) 18286-8Vwaviiork encounter ZjgvTN3892-34-13Y69:43:04Tel ephone encounter NoteTXT1.2.840.062961.1.13.1 .2.7.2.617499|[id number] Available for patient dhgi01210-1ShzhIHZYSJYAECPXd rmatted C-CDA narrative wzpd382680687Togkgkchz L [address] [id number] SH9727-00-19C65:43:041.2.840 .018769.1.72.3.15|1.2.840.11 4350.1.13.104.2.7.2.727879_1 [id number] Maia Saleh [facility] 2022-09-23 13:47:37 M6L2GwtDiBWdT+wXspuW 1oqh4Pws sEyem77qV+Ry8P3dCqOLyzf8sjuy L1p2xIOV4539-44-64P11:47:37F ormatting of this note might be different from the original.Spoke with patient, scheduled BP check for tomorrow morning at 8:30 AM. Patient verbalized understanding and had no further questions. 26888-6Befumzasf encounter AyrsHF1687-69-98K80:48:28Tel ephone encounter NoteTXT1.2.840.616888.1.13.1 04.2.7.2.272833|[id number] Available for patient hnjv918184141Qxyajal Rivera [address] NbguFqwlflbnkQsxmdsxzmGVMG85 [id number] OE7373-84-70O05:48:281.2.840 .395310.1.72.3.15|1.2.840.11 4350.1.13.104.2.7.2.727879_1 [id number] Nasrin Westfall LVN [facility] 2022-09-21 16:53:00 xB6cdHtb0jm0/mzpJkHO ms7bsDGD Hez1LKcF0PSKLOsM6nmH8nGTqCaW Ipnu3zAn4616-28-77B28:53:00F ormatting of this note might be different from the original.Patient needs BP check and OCP refills. Attempted to call #1. Left message with call back number. 83671-8Imemprehf encounter FgbuMZ4867-57-62C78:54:07Tel ephone encounter NoteTXT1.2.840.851221.1.13.1 04.2.7.2.936113|[id number] Available for patient [address] NkeeJsxnuefbeHycfvfajtRBLA65 15788281DDGZWXMLDJFTLDMDWSPQ TY7938-70-23L60:54:071.2.840 .727010.1.72.3.15|1.2.840.11 4350.1.13.104.2.7.2.727879_1 [id number] [facility]"
--- NOTE | 2023-03-26 11:35 | RAD REPORT ---
EXAM DESCRIPTION: US - Transvaginal OB - 03/26/2023 11:17 am CLINICAL HISTORY: ABD CRAMPING, COMPARISON: No comparisons FINDINGS: No gestational sac identified. The uterus measures 7.1 x 3.3 x 4.4 cm with volume of 54.4 mL. The endometrial echo complex measures 9 millimeters. The right ovary measures 3.4 x 2.8 x 2.4 cm with volume of 12.1 cc. The left ovary measures 3.1 x 1.6 x 1.7 with volume of 4.5 cc. No free fluid identified. No adnexal mass. Bilateral ovarian blood flow. IMPRESSION: No IUP identified. Therefore, cannot exclude early normal first trimester , ole led first trimester , or early ectopic. Bilateral ovarian blood flow is present.
[2023-03-26 11:45] LABS: Absolute Lymphocytes (CBC) 2.7 K/uL (0.7-4.9); Hematocrit 40.1 % (36.0-45.0); Lymphocytes % 22.1 % (15.3-44.8); MCV 87.7 fL (80-100); MPV 7.4 fL (7.6-11.3); Platelets 486 thou/uL (152-406); RBC Red Blood Cell Count 4.57 M/uL (3.86-4.86)
[2023-03-26 11:49] LABS: Specific Gravity 1.022 (1.005-1.030)
[2023-03-26 11:55] LABS: Specific Gravity 1.022 (1.005-1.030); Urine Bacteria None Seen /HPF (<20); Urine Bilirubin NEGATIVE (Negative); Urine Blood Trace (Negative); Urine Clarity Turbid (Clear); Urine Color Light-Yellow (Yellow); Urine Glucose NEGATIVE (Negative); Urine Mucus Slight /HPF (None Seen); Urine Protein NEGATIVE (Negative); Urine RBC <5 /HPF (None Seen); Urine Urobilinogen Normal (Normal)
[2023-03-26 12:01] LABS: BUN Blood Urea Nitrogen 12 mg/dL (7-18); Bicarbonate 26 mEq/L (21-32); Glomerular Filtration Rate 89 ml/min (=/>90); Glucose Level 100 mg/dL (74-106); Potassium 3.8 mEq/L (3.5-5.1); Sodium Level 140 mEq/L (136-145)
[2023-03-26 12:06] LABS: HCG, Quantitative < 1 mIU/mL (1-3)
--- NOTE | 2023-03-26 13:18 | ER ---
Nurse's Notes [facility] Name: Sherri Perez Age: 27 yrs Sex: Female : 1995 Arrival Date: 03/26/2023 Time: 10:07 Bed 19 Private MD: Shelli Brannon Diagnosis: Urinary tract infection Presentation: 03/26 10:31 Chief complaint: Had 2 positive home tests on 03/17, then 2 negative tests a hb few days later, c/o fatigue, nausea, and breast pain. LMP 02/12, . Coronavirus screen: At this time, the client does not indicate any symptoms associated with coronavirus-19. Ebola Screen: No symptoms or risks identified at this time. Initial Sepsis Screen: Does the patient meet any 2 criteria? No. Patient's initial sepsis screen is negative. Does the patient have a suspected source of infection? No. Patient's initial sepsis screen is negative. Risk Assessment: Do you want to hurt yourself or someone else? Patient reports no desire to harm self or others. Onset of symptoms was March 17, 2023. 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 - Social history:: Smoking status: Patient denies any tobacco usage or history of. Screenin:[address] [facility] ED Fall Risk Assessment (Adult) History of falling in the last 3 months, ap3 including since admission No falls in past 3 months (0 pts). Abuse screen: Denies threats or abuse. Nutritional screening: No deficits noted. Tuberculosis screening: No symptoms or risk factors identified. Assessment: 12:01 General: Appears in no apparent distress. Behavior is calm, cooperative, appropriate ap3 for age. Pain: Denies pain. Neuro: Level of Consciousness is awake, alert, obeys commands, Oriented to person, place, time, situation. Cardiovascular: Patient's skin is warm and dry. Respiratory: Airway is patent Respiratory effort is even, unlabored, Respiratory pattern is regular, symmetrical. GI: Abd is soft. : Reports missed menstrual cycle for approx 14 days now. 13:34 GI: Bowel sounds present X 4 quads. me1 Vital Signs: 10:31 BP 139 / 76; Pulse 93; Resp 16; Temp 98.1; Pulse Ox 100% on R/A; Pain 1/10; hb 13:03 BP 131 / 81; Pulse 67; Resp 17; Pulse Ox 97% on R/A; me1 13:33 BP 120 / 71; Pulse 73; Resp 16; Pulse Ox 96% on R/A; me1 10:31 Pain Scale: Adult hb ED Course: 10:10 Patient arrived in ED. mr 10:11 Shelli Brannon is Private Physician. mr 10:11 Samuel Vanegas MD is Attending Physician. sp3 10:33 Triage completed. hb 10:34 Arm band placed on. hb 10:41 Radiology exam delayed due to test not completed at this time. aa4 11:19 US Transvaginal Ob In Process Unspecified. EDMS 11:34 Emma Alberto, RN is Primary Nurse. ap3 11:34 Initial lab(s) drawn, by me, sent to lab. Inserted saline lock: 22 gauge in right ap3 antecubital area, using aseptic technique. Blood collected. 11:34 Abo/rh Typing Sent. ap3 11:34 Basic Metabolic Panel Sent. ap3 11:34 CBC with Diff Sent. ap3 11:40 Test, Urine Sent. ap3 11:40 Quantitative Hcg Sent. ap3 11:40 Urinalysis w/ reflexes Sent. ap3 12:02 Patient has correct armband on for positive identification. Bed in low position. Call ap3 light in reach. 13:34 No provider procedures requiring assistance completed. IV discontinued, intact, me1 bleeding controlled, No redness/swelling at site. Pressure dressing applied. 13:35 Provided Education on: POC. Verbalized understanding. . me1 Administered Medications: No medications were administered Medication: 12:02 VIS not applicable for this client. ap3 Outcome: 13:17 Discharge ordered by MD. sp3 13:34 Discharged to home ambulatory, me1 13:34 Condition: stable 13:34 Discharge instructions given to patient, Instructed on discharge instructions, follow up and referral plans. medication usage, Demonstrated understanding of instructions, follow-up care, medications, Prescriptions given X 1, 13:35 Patient left the ED. me1 Signatures: Dispatcher [employer] EDAK Sandra Westfall, [facility] Mike mr Emma Jaimes Heather, RN RN Emma Alberto RN RN ap3 Samuel Vanegas MD MD sp3 Delia Dave RN RN me1
--- NOTE | 2023-03-26 13:18 | EDPHYS ---
Physician Documentation [facility] Name: Sherri Perez Age: 27 yrs Sex: Female : 1995 Arrival Date: 03/26/2023 Time: 10:07 Bed 19 Private MD: Shelli Brannon ED Physician Samuel Vanegas HPI: 03/26 11:09 This 27 yrs old Female presents to ER via Ambulatory with complaints of Abdominal sp3 Swelling, Headache, Nausea, Urinary Problem. 11:09 27-year-old female with history of ovarian cysts who is G1, with positive sp3 test in February and now with negative test at home with LMP February 12 now presents to the ED with continued lower abdominal cramping abdominal pain. She wants to know whether she is still and if there are any complications with her cysts or otherwise. She denies any other symptoms including upper abdominal pain, vomiting, diarrhea, nausea, chest pain, shortness of breath, bleeding, rash, syncope, near syncope, or any other signs or symptoms on ROS at this time.. 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 - Social history:: Smoking status: Patient denies any tobacco usage or history of. ROS: 11:11 Constitutional: Negative for fever, chills, and weight loss, Eyes: Negative for injury, sp3 pain, redness, and discharge, ENT: Negative for injury, pain, and discharge, Neck: Negative for injury, pain, and swelling, Cardiovascular: Negative for chest pain, palpitations, and edema, Respiratory: Negative for shortness of breath, cough, wheezing, and pleuritic chest pain, Back: Negative for injury and pain, MS/Extremity: Negative for injury and deformity, Skin: Negative for injury, rash, and discoloration, Neuro: Negative for headache, weakness, numbness, tingling, and seizure, Psych: Negative for depression, anxiety, suicide ideation, homicidal ideation, and hallucinations, Allergy/Immunology: Negative for hives, rash, and allergies, 11:11 All other systems are negative, Exam: 11:12 Constitutional: This is a well developed, well nourished patient who is awake, alert, sp3 and in no acute distress. Head/Face: Normocephalic, atraumatic. Eyes: Pupils equal round and reactive to light, extra-ocular motions intact. Lids and lashes normal. Conjunctiva and sclera are non-icteric and not injected. Cornea within normal limits. Periorbital areas with no swelling, redness, or edema. Neck: Trachea midline, no thyromegaly or masses palpated, and no cervical lymphadenopathy. Supple, full range of motion without nuchal rigidity, or vertebral point tenderness. No Meningismus. Chest/axilla: Normal chest wall appearance and motion. Nontender with no deformity. No lesions are appreciated. Cardiovascular: Regular rate and rhythm with a normal S1 and S2. No gallops, murmurs, or rubs. Normal PMI, no JVD. No pulse deficits. Respiratory: Lungs have equal breath sounds bilaterally, clear to auscultation and percussion. No rales, rhonchi or wheezes noted. No increased work of breathing, no retractions or nasal flaring. Abdomen/GI: Soft, non-tender, with normal bowel sounds. No distension or tympany. No guarding or rebound. No evidence of tenderness throughout. Back: No spinal tenderness. No costovertebral tenderness. Full range of motion. Skin: Warm, dry with normal turgor. Normal color with no rashes, no lesions, and no evidence of cellulitis. MS/ Extremity: Pulses equal, no cyanosis. Neurovascular intact. Full, normal range of motion. Neuro: Awake and alert, GCS 15, oriented to person, place, time, and situation. Cranial nerves II-XII grossly intact. Motor strength 5/5 in all extremities. Sensory grossly intact. Cerebellar exam normal. Normal gait. Psych: Awake, alert, with orientation to person, place and time. Behavior, mood, and affect are within normal limits. Vital Signs: 10:31 BP 139 / 76; Pulse 93; Resp 16; Temp 98.1; Pulse Ox 100% on R/A; Pain 1/10; hb 13:03 BP 131 / 81; Pulse 67; Resp 17; Pulse Ox 97% on R/A; me1 13:33 BP 120 / 71; Pulse 73; Resp 16; Pulse Ox 96% on R/A; me1 10:31 Pain Scale: Adult hb MDM: 10:52 Patient medically screened. sp3 11:12 Data reviewed: vital signs, nurses notes, lab test result(s), radiologic studies. ED sp3 course: 27-year-old with possible and lower abdominal pain. We will obtain standard workup of ultrasound transvaginal, laboratory values including quantitative hCG and urine analysis. Disposition pending workup and patient course. Consider complication, ectopic, ovarian cyst, UTI spectrum, among others. I am not highly suspicious for GI pathology or ovarian torsion. Patient is resting comfortably in no acute distress with minimal pain at the moment.. 13:14 ED course: Patient is not with hCG less than 1. Ultrasound demonstrates no sp3 abnormality and no IUP found. UA demonstrates infection. We will safely discharge patient home with reassurance that she is not and on antibiotics to resolve her UTI. Follow-up with her PCP as needed.. 03/26 10:36 Order name: Abo/rh Typing; Complete Time: 12:58 sp3 03/26 10:36 Order name: Basic Metabolic Panel; Complete Time: 12:58 sp3 03/26 10:36 Order name: CBC with Diff; Complete Time: 12:03 sp3 03/26 10:36 Order name: Test, Urine; Complete Time: 12:03 sp3 03/26 10:36 Order name: Quantitative Hcg; Complete Time: 12:58 sp3 03/26 10:36 Order name: Urinalysis w/ reflexes; Complete Time: 12:03 sp3 03/26 11:58 Order name: Urine Culture EDDC 03/26 10:36 Order name: US Transvaginal Ob; Complete Time: 12:03 sp3 03/26 10:36 Order name: IV Saline Lock; Complete Time: 11:34 sp3 03/26 10:36 Order name: Labs collected and sent; Complete Time: 11:34 sp3 03/26 10:36 Order name: NPO; Complete Time: 11:34 sp3 Administered Medications: No medications were administered Disposition Summary: 03/26/23 13:17 Discharge Ordered Notes: Location: Home sp3 Condition: Stable sp3 Diagnosis - Urinary tract infection sp3 Followup: sp3 - With: Private Physician - When: Upon discharge from the Emergency Department - Reason: Continuance of care Discharge Instructions: - Discharge Summary Sheet sp3 - Urinary Tract Infection, Adult sp3 Forms: - Medication Reconciliation Form sp3 - Thank You Letter sp3 - Antibiotic Education sp3 - Prescription Opioid Use sp3 - Patient Portal Instructions sp3 - Leadership Thank You Letter sp3 Prescriptions: - Bactrim DS 800-160 mg Oral Tablet - take 1 tablet ORAL route every 12 hours for 7 days; 14 tablet; Refills: 0, sp3 Product Selection Permitted Signatures: Dispatcher [employer] Lucia Langford, ISRA RN Samuel Mcnamara MD MD sp3
[2023-03-26 17:36] VITALS: BP 120/71; TEMP 98.1; O2SAT 96
== END ==
LOC: ER 10:07
DX: N39.0 Urinary tract infection, site not specified (principal)
CPT/HCPCS: 36415; 76817; 80048; 81001; 81025; 84702; 85025; 86900; 86901; 87086; 87088; 99284